=== PATIENT | female | born 1965 | race Hispanic/Latino ===

== ENCOUNTER 2018-02-07 12:08 | Emergency (ER) | payer BC, OTHER ==
[2018-02-07] MEDS ORDERED: ONDANSETRON 4 MG/2 ML VIAL ONE (13:14)
[2018-02-07] MEDS ORDERED: MORPHINE 4 MG/ML SYR ONE (13:14)
[2018-02-07] MEDS ORDERED: NA CHLORIDE 0.9% 2,000 ML ONE (13:14)
[2018-02-07 13:20] LABS: Absolute Lymphocytes (CBC) 1.2 K/uL (0.7-4.9); Absolute Monocytes 0.4 K/uL (0.1-1.3); Absolute Neutrophil 6.7 K/uL (1.8-8.0); Basophils % 0.6 % (0-1.3); Eosinophils % 0.9 % (0-4.4); Hematocrit 47.4 % (36.0-45.0); Lymphocytes % 14.4 % (15.3-44.8); MCH 28.7 pg (27.0-35.0); MCV 87.1 fL (80-100); MPV 7.6 fL (7.6-11.3); Monocytes % 4.8 % (3.3-12.3); RBC Red Blood Cell Count 5.44 M/uL (3.86-4.86)
[2018-02-07 13:27] LABS: Protime INR 1.05
[2018-02-07 13:33] LABS: Bicarbonate 26 mEq/L (21-31); Glucose Level 104 mg/dL (65-120); Lipase 11 U/L (22-51); Potassium 3.7 mEq/L (3.6-5.0); Sodium Level 136 mEq/L (135-145)
[2018-02-07 13:39] LABS: ALT/SGPT 35 IU/L (10-60); AST/SGOT 26 IU/L (10-42); Albumin 4.2 g/dL (3.2-5.5); Alkaline Phosphatase 106 IU/L (42-121); BUN Blood Urea Nitrogen 13 mg/dL (6-20); Bilirubin Direct 0.1 mg/dL (0-0.2); Bilirubin Total 0.7 mg/dL (0.3-1.2); Creatine Phosphokinase 77 IU/L (22-269); Magnesium 1.7 mg/dL (1.8-2.5); Protein, Total 7.7 g/dL (6.0-8.3)
[2018-02-07] MEDS ORDERED: CIPROFLOXACIN 400mg IV 400 MG/200 ML BAG IV ONE (15:01)
[2018-02-07 15:34] LABS: Urine Blood TRACE (NEG); Urine Glucose NEGATIVE (NEG); Urine Protein NEGATIVE (NEG); Urine Specific Gravity 1.015 (1.005-1.030)
--- NOTE | 2018-02-07 15:38 | EDPHYS ---
Physician Documentation [facility] Name: Chichi Carreon Age: 52 yrs Sex: Female : 1965 Arrival Date: 02/07/2018 Time: 12:10 Bed 23 Private MD: Milton Cuellar ED Physician Elie Manuel HPI: 02/07 13:05 This 52 yrs old Female presents to ER via Wheelchair with complaints of herman Vomiting/Diarrhea. 13:05 The patient presents to the emergency department with nausea, vomiting, diarrhea. herman Onset: The symptoms/episode began/occurred today. Possible causes: unknown. The symptoms are aggravated by nothing. The symptoms are alleviated by nothing. Associated signs and symptoms: Pertinent positives: nausea, vomiting. Severity of symptoms: At their worst the symptoms were mild moderate in the emergency department the symptoms are unchanged. The patient has experienced similar episodes in the past, a few times. 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 - Social history:: Smoking status: Patient/guardian denies using tobacco. ROS: 13:06 Constitutional: Negative for fever, chills, and weight loss, Eyes: Negative for injury, herman pain, redness, and discharge, ENT: Negative for injury, pain, and discharge, Neck: Negative for injury, pain, and swelling, Cardiovascular: Negative for chest pain, palpitations, and edema, Respiratory: Negative for shortness of breath, cough, wheezing, and pleuritic chest pain, Back: Negative for injury and pain, : Negative for injury, bleeding, discharge, and swelling, MS/Extremity: Negative for injury and deformity, Skin: Negative for injury, rash, and discoloration, Psych: Negative for depression, anxiety, suicide ideation, homicidal ideation, and hallucinations, Allergy/Immunology: Negative for hives, rash, and allergies, Endocrine: Negative for neck swelling, polydipsia, polyuria, polyphagia, and marked weight changes. 13:06 Abdomen/GI: Positive for nausea and vomiting, diarrhea, of the right upper quadrant, left upper quadrant, right lower quadrant and left lower quadrant. Exam: 13:06 Constitutional: This is a well developed, well nourished patient who is awake, alert, herman and in no acute distress. Head/Face: Normocephalic, atraumatic. Eyes: Pupils equal round and reactive to light, extra-ocular motions intact. Lids and lashes normal. Conjunctiva and sclera are non-icteric and not injected. Cornea within normal limits. Periorbital areas with no swelling, redness, or edema. ENT: Nares patent. No nasal discharge, no septal abnormalities noted. Tympanic membranes are normal and external auditory canals are clear. Oropharynx with no redness, swelling, or masses, exudates, or evidence of obstruction, uvula midline. Mucous membranes moist. Neck: Trachea midline, no thyromegaly or masses palpated, and no cervical lymphadenopathy. Supple, full range of motion without nuchal rigidity, or vertebral point tenderness. No Meningismus. Chest/axilla: Normal chest wall appearance and motion. Nontender with no deformity. No lesions are appreciated. Cardiovascular: Regular rate and rhythm with a normal S1 and S2. No gallops, murmurs, or rubs. Normal PMI, no JVD. No pulse deficits. Respiratory: Lungs have equal breath sounds bilaterally, clear to auscultation and percussion. No rales, rhonchi or wheezes noted. No increased work of breathing, no retractions or nasal flaring. Back: No spinal tenderness. No costovertebral tenderness. Full range of motion. Skin: Warm, dry with normal turgor. Normal color with no rashes, no lesions, and no evidence of cellulitis. MS/ Extremity: Pulses equal, no cyanosis. Neurovascular intact. Full, normal range of motion. Neuro: Awake and alert, GCS 15, oriented to person, place, time, and situation. Cranial nerves II-XII grossly intact. Motor strength 5/5 in all extremities. Sensory grossly intact. Cerebellar exam normal. Normal gait. 13:06 Abdomen/GI: Inspection: distension, Bowel sounds: hyperactive, Palpation: mild abdominal tenderness, in all quadrants, Indicators: McBurney's point is not tender, Clemens's sign is negative, Rovsing's sign is negative, Obturator sign Vital Signs: 12:14 BP 162 / 90; Pulse 81; Resp 19; Temp 99.0(TE); Pulse Ox 96% on R/A; Weight 72.57 kg; la1 Height 5 ft. 1 in. (154.94 cm); 13:45 BP 137 / 80; Pulse 67; Resp 18; Pulse Ox 95% on R/A; kr2 14:07 BP 148 / 81; Pulse 73; Resp 17; Pulse Ox 96% on R/A; dh3 15:21 BP 137 / 82; Pulse 70; Resp 16; Pulse Ox 93% on R/A; kr2 17:00 BP 140 / 90; Pulse 70; Resp 15; Pulse Ox 100% on R/A; kr2 12:14 Body Mass Index 30.23 (72.57 kg, 154.94 cm) la1 MDM: 12:59 Patient medically screened. [facility] 15:46 Data reviewed: vital signs, nurses notes, lab test result(s), EKG, radiologic studies, herman plain films. 02/07 13:04 Order name: Basic Metabolic Panel [facility] 02/07 13:04 Order name: BNP; Complete Time: 15:35 [facility] 02/07 13:04 Order name: CBC with Diff; Complete Time: 15:35 [facility] 02/07 13:04 Order name: Ckmb; Complete Time: 15:35 [facility] 02/07 13:04 Order name: CPK; Complete Time: 15:35 [facility] 02/07 13:04 Order name: LFT's; Complete Time: 15:35 [facility] 02/07 13:04 Order name: Magnesium; Complete Time: 15:35 [facility] 02/07 13:04 Order name: PT-INR; Complete Time: 15:35 [facility] 02/07 13:04 Order name: Ptt, Activated; Complete Time: 15:35 [facility] 02/07 13:04 Order name: Troponin (emerg Dept Use Only); Complete Time: 15:35 [facility] 02/07 13:04 Order name: Lipase; Complete Time: 15:35 [facility] 02/07 13:04 Order name: EKG; Complete Time: 13:04 [facility] 02/07 13:04 Order name: Cardiac monitoring; Complete Time: 13:09 [facility] 02/07 13:04 Order name: EKG - Nurse/Tech; Complete Time: 13:22 [facility] 02/07 13:04 Order name: IV Saline Lock; Complete Time: 13:09 [facility] 02/07 13:04 Order name: Labs collected and sent; Complete Time: 13: [facility] 02/07 13:04 Order name: O2 Per Protocol; Complete Time: 13:10 [facility] 02/07 13:04 Order name: O2 Sat Monitoring; Complete Time: 13:10 [facility] 02/07 13:04 Order name: Basic Metabolic Panel; Complete Time: 15:35 EDMS 02/07 15:19 Order name: Urine Dipstick--Ancillary (enter results); Complete Time: 15:35 eb 02/07 13:04 Order name: Urine Dipstick-Ancillary (obtain specimen); Complete Time: 15:21 [facility] Administered Medications: Discontinued: NS 0.9% 1000 ml IV at 125 ml/hr continuous 13:21 Drug: morphine 2 mg Route: IVP; Site: right antecubital; kr2 14:00 Follow up: Response: No adverse reaction kr2 13:21 Drug: Zofran 4 mg Route: IVP; Site: right antecubital; kr2 14:00 Follow up: Response: No adverse reaction kr2 13:22 Drug: NS 0.9% 1000 ml Route: IV; Rate: 1 bolus; Site: right antecubital; kr2 14:52 Follow up: Response: No adverse reaction; IV Status: Completed infusion kr2 14:52 Drug: NS 0.9% 1000 ml Route: IV; Rate: 125 ml/hr; Site: right antecubital; kr2 17:21 Follow up: Response: No adverse reaction; IV Status: Order to discontinue infusion kr2 14:53 Drug: Cipro 400 mg Volume: 200 ml; Route: IVPB; Infused Over: 60 mins; Site: left kr2 antecubital; 16:00 Follow up: Response: No adverse reaction; IV Status: Completed infusion kr2 15:50 Drug: Magnesium Sulfate 1 grams Route: IVPB; Infused Over: 1 hrs; Site: right kr2 antecubital; 17:20 Follow up: Response: No adverse reaction; IV Status: Completed infusion kr2 Disposition: 02/07/18 15:36 Discharged to Home. Impression: Vomiting, Diarrhea, unspecified, Hypomagnesemia. - Condition is Stable. - Discharge Instructions: Food Choices to Help Relieve Diarrhea, Adult, Diarrhea, Hypomagnesemia, Irritable Bowel Syndrome, Adult, Nausea and Vomiting, Nausea and Vomiting, [id number], Diarrhea, [id number]. - Prescriptions for Bentyl 20 mg Oral Tablet - take 1 tablet by ORAL route every 6 hours As needed; 20 tablet. Pepcid 20 mg Oral Tablet - take 1 tablet by ORAL route every 12 hours for 10 days; 20 tablet. Zofran 4 mg Oral Tablet - take 1 tablet by ORAL route every 12 hours As needed; 20 tablet. Cipro 500 mg Oral Tablet - take 1 tablet by ORAL route every 12 hours for 5 days; 10 tablet. - Medication Reconciliation Form, Thank You Letter, Antibiotic Education, Prescription Opioid Use form. - Follow up: Milton Cuellar; When: 2 - 3 days; Reason: Recheck today's complaints, Continuance of care, Re-evaluation by your physician. - Problem is new. - Symptoms have improved. Signatures: Dispatcher [employer] EDMS Elie Manuel MD MD cha Attema, Lee, RN RN la1 Negrita Contreras RN RN kr2 Corrections: (The following items were deleted from the chart) 13:05 13:04 Occult Blood+PA.LAB.BRZ ordered. EDMS EDMS 13:25 13:04 Chest Single View+RAD.RAD.BRZ ordered. EDMS EDMS
--- NOTE | 2018-02-07 15:38 | ER ---
Nurse's Notes [facility] Name: Chichi Carreon Age: 52 yrs Sex: Female : 1965 Arrival Date: 02/07/2018 Time: 12:10 Bed 23 Private MD: Milton Cuellar Diagnosis: Vomiting;Diarrhea, unspecified;Hypomagnesemia Presentation: 02/07 12:13 Presenting complaint: Patient states: N/V/D since 0100. pt denies abd pain. Transition la1 of care: patient was not received from another setting of care. Onset of symptoms was February 07, 2018. Initial Sepsis Screen: Does the patient meet any 2 criteria? No. Patient's initial sepsis screen is negative. Does the patient have a suspected source of infection? No. Patient's initial sepsis screen is negative. Care prior to arrival: None. 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 - Social history:: Smoking status: Patient/guardian denies using tobacco. Screenin:05 Abuse screen: Denies threats or abuse. Denies injuries from another. Nutritional kr2 screening: No deficits noted. Tuberculosis screening: No symptoms or risk factors identified. Fall Risk IV access (20 points). Assessment: 13:05 General: Appears in no apparent distress. comfortable, well groomed, well developed, kr2 well nourished, Behavior is calm, cooperative, appropriate for age. Pain: Complains of pain in forehead Pain does not radiate. Pain currently is 5 out of 10 on a pain scale. Quality of pain is described as pulsating, Pain began gradually, Is continuous, Alleviated by rest, Aggravated by increased activity, Noted to be grimacing. 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 Speech is normal, Facial symmetry appears normal, Pupils are PERRLA, Intact. Cardiovascular: Capillary refill < 3 seconds in bilateral fingers Patient's skin is warm and dry. Rhythm is sinus rhythm. Cardiovascular: Denies chest pain. Respiratory: Airway is patent Respiratory effort is even, unlabored, Respiratory pattern is regular, symmetrical. GI: Abdomen is round non-distended, Bowel sounds present X 4 quads. Abd is soft and non tender X 4 quads. Reports diarrhea, nausea, vomiting, since 0100. : No signs and/or symptoms were reported regarding the genitourinary system. Denies burning with urination. EENT: Nares are clear bilaterally Oral mucosa is dry. Derm: Skin is intact, is healthy with good turgor, Skin is dry, Skin is pale, Skin temperature is warm. Musculoskeletal: Circulation, motion, and sensation intact. 14:00 Reassessment: Patient appears in no apparent distress at this time. Patient and/or kr2 family updated on plan of care and expected duration. Pain level reassessed. Patient is alert, oriented x 3, equal unlabored respirations, skin warm/dry/pink. Patient states feeling better. Patient states symptoms have improved. 15:00 Reassessment: Patient appears in no apparent distress at this time. Patient and/or kr2 family updated on plan of care and expected duration. Pain level reassessed. Patient is alert, oriented x 3, equal unlabored respirations, skin warm/dry/pink. No episodes of vomiting or diarrhea since arrival to ER bed Patient denies pain at this time. Patient states feeling better. 16:00 Reassessment: Patient appears in no apparent distress at this time. Patient and/or kr2 family updated on plan of care and expected duration. Pain level reassessed. Patient is alert, oriented x 3, equal unlabored respirations, skin warm/dry/pink. Patient denies pain at this time. Patient states feeling better. Patient states symptoms have improved. 17:00 Reassessment: Patient appears in no apparent distress at this time. Patient and/or kr2 family updated on plan of care and expected duration. Pain level reassessed. Patient is alert, oriented x 3, equal unlabored respirations, skin warm/dry/pink. Patient denies pain at this time. Patient states feeling better. Patient states symptoms have improved. Vital Signs: 12:14 BP 162 / 90; Pulse 81; Resp 19; Temp 99.0(TE); Pulse Ox 96% on R/A; Weight 72.57 kg; la1 Height 5 ft. 1 in. (154.94 cm); 13:45 BP 137 / 80; Pulse 67; Resp 18; Pulse Ox 95% on R/A; kr2 14:07 BP 148 / 81; Pulse 73; Resp 17; Pulse Ox 96% on R/A; dh3 15:21 BP 137 / 82; Pulse 70; Resp 16; Pulse Ox 93% on R/A; kr2 17:00 BP 140 / 90; Pulse 70; Resp 15; Pulse Ox 100% on R/A; kr2 12:14 Body Mass Index 30.23 (72.57 kg, 154.94 cm) la1 ED Course: 12:10 Patient arrived in ED. as 12:10 Milton Cuellar MD is Private Physician. as 12:14 Triage completed. la1 12:14 Arm band placed on left wrist. la1 12:54 Negrita Contreras, ADINA is Primary Nurse. kr2 12:59 Elie Manuel MD is Attending Physician. herman 13:05 Patient has correct armband on for positive identification. Bed in low position. Call kr2 light in reach. Side rails up X2. Adult w/ patient. satellite project site monitor on. Pulse ox on. NIBP on. Door closed. Warm blanket given. Head of bed elevated. 13:05 Inserted saline lock: 20 gauge in right antecubital area, using aseptic technique. kr2 Blood collected. 15:36 Milton Cuellar MD is Referral Physician. herman 17:23 No provider procedures requiring assistance completed. IV discontinued, intact, kr2 bleeding controlled, No redness/swelling at site. Pressure dressing applied. Administered Medications: Discontinued: NS 0.9% 1000 ml IV at 125 ml/hr continuous 13:21 Drug: morphine 2 mg Route: IVP; Site: right antecubital; kr2 14:00 Follow up: Response: No adverse reaction kr2 13:21 Drug: Zofran 4 mg Route: IVP; Site: right antecubital; kr2 14:00 Follow up: Response: No adverse reaction kr2 13:22 Drug: NS 0.9% 1000 ml Route: IV; Rate: 1 bolus; Site: right antecubital; kr2 14:52 Follow up: Response: No adverse reaction; IV Status: Completed infusion kr2 14:52 Drug: NS 0.9% 1000 ml Route: IV; Rate: 125 ml/hr; Site: right antecubital; kr2 17:21 Follow up: Response: No adverse reaction; IV Status: Order to discontinue infusion kr2 14:53 Drug: Cipro 400 mg Volume: 200 ml; Route: IVPB; Infused Over: 60 mins; Site: left kr2 antecubital; 16:00 Follow up: Response: No adverse reaction; IV Status: Completed infusion kr2 15:50 Drug: Magnesium Sulfate 1 grams Route: IVPB; Infused Over: 1 hrs; Site: right kr2 antecubital; 17:20 Follow up: Response: No adverse reaction; IV Status: Completed infusion kr2 Outcome: 15:36 Discharge ordered by MD. sutton 17:24 Discharged to home via wheelchair. kr2 17:24 Condition: improved 17:24 Discharge instructions given to patient, family, Instructed on discharge instructions, follow up and referral plans. medication usage, Demonstrated understanding of instructions, follow-up care, medications, Prescriptions given X 4. 17:45 Patient left the ED. kr2 Signatures: Elie Manuel MD MD cha Martinez, Amelia as Attema, Lee, RN RN dana1 Diana Mccray [facility] Negrita Contreras, RN RN kr2
[2018-02-07] MEDS ORDERED: MAGNESIUM SULFATE 1 gm IVPB 1 GM/100 ML BAG IV ONE (16:07)
--- NOTE | 2018-02-07 18:26 | EKG ---
Test Date: 2018-02-07 Test Time: 13:15:05 Critical Care Unit Manager: BAYRON MEASUREMENT RESULTS: Intervals: Rate: 68 AR: 142 QRSD: 80 QT: 382 QTc: 406 [employer]: P: 25 AR: 142 QRS: -8 T: 132 INTERPRETIVE STATEMENTS: Normal sinus rhythm Minimal voltage criteria for LVH, may be normal variant Non specific T abnormality Abnormal ECG Compared to ECG 07/17/2011 08:34:26 no significant change from previous ECG Electronically Signed On 02-07-18 18:25:45 CDT by Hitesh Sanchez
== END 2018-02-07 17:45 | disposition home or self-care (01) ==
LOC: ER 12:08
DX: R11.10 Vomiting, unspecified (principal); R19.7 Diarrhea, unspecified; E83.42 Hypomagnesemia
CPT/HCPCS: 36415; 80048; 80076; 81003; 82550; 82553; 83690; 83735; 83880; 84484; 85025; 85610; 85730; 93005; 99284; J0744; J2405; J3475; J7030

== ENCOUNTER 2020-05-08 20:37 | Emergency (ER) | payer BC ==
[2020-05-08 21:26] LABS: Urine Blood 2+ (NEG); Urine Glucose NEGATIVE (NEG); Urine Protein NEGATIVE (NEG); Urine Specific Gravity 1.025 (1.005-1.030)
[2020-05-08] MEDS ORDERED: MORPHINE 4 MG/ML SYR ONE (21:29)
[2020-05-08] MEDS ORDERED: ONDANSETRON 4 MG/2 ML VIAL ONE (21:29)
[2020-05-08 21:30] LABS: Absolute Lymphocytes (CBC) 4.8 K/uL (0.7-4.9); Basophils % 0.3 % (0-1.3); Hematocrit 43.5 % (36.0-45.0); Lymphocytes % 49.3 % (15.3-44.8); RBC Red Blood Cell Count 5.01 M/uL (3.86-4.86)
[2020-05-08] MEDS ORDERED: NA CHLORIDE 0.9% 1,000 ML ONE (21:30)
--- NOTE | 2020-05-08 22:54 | EDPHYS ---
Physician Documentation [facility] Name: Chichi Carreon Age: 55 yrs Sex: Female : 1965 Arrival Date: 05/08/2020 Time: 20:38 Bed 19 Private MD: ED Physician Oliverio Cortez HPI: 05/08 21:18 This 55 yrs old Female presents to ER via Wheelchair with complaints of pkl Abdominal Pain, Vomiting, Pain With Urination. 21:18 The patient complains of pain in the left flank. The pain does not radiate. Onset: The pkl symptoms/episode began/occurred just prior to arrival. Associated signs and symptoms: Pertinent positives: nausea, vomiting. The patient has not experienced similar symptoms in the past. 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 - Social history:: Smoking status: Patient denies any tobacco usage or history of. ROS: 21:18 Eyes: Negative for injury, pain, redness, and discharge, ENT: Negative for injury, pkl pain, and discharge, Neck: Negative for injury, pain, and swelling, Cardiovascular: Negative for chest pain, palpitations, and edema, Respiratory: Negative for shortness of breath, cough, wheezing, and pleuritic chest pain, Abdomen/GI: Negative for abdominal pain, nausea, vomiting, diarrhea, and constipation. 21:18 Back: Positive for flank pain, on the left. 21:18 : Positive for burning with urination. 21:18 MS/extremity: Negative for acute changes. 21:18 Skin: Negative for rash. 21:18 Neuro: Negative for altered mental status. Exam: 21:18 Head/Face: Normocephalic, atraumatic. Eyes: Pupils equal round and reactive to light, pkl extra-ocular motions intact. Lids and lashes normal. Conjunctiva and sclera are non-icteric and not injected. Cornea within normal limits. Periorbital areas with no swelling, redness, or edema. ENT: Nares patent. No nasal discharge, no septal abnormalities noted. Tympanic membranes are normal and external auditory canals are clear. Oropharynx with no redness, swelling, or masses, exudates, or evidence of obstruction, uvula midline. Mucous membranes moist. Neck: Trachea midline, no thyromegaly or masses palpated, and no cervical lymphadenopathy. Supple, full range of motion without nuchal rigidity, or vertebral point tenderness. No Meningismus. Chest/axilla: Normal chest wall appearance and motion. Nontender with no deformity. No lesions are appreciated. Cardiovascular: Regular rate and rhythm with a normal S1 and S2. No gallops, murmurs, or rubs. Normal PMI, no JVD. No pulse deficits. Respiratory: Lungs have equal breath sounds bilaterally, clear to auscultation and percussion. No rales, rhonchi or wheezes noted. No increased work of breathing, no retractions or nasal flaring. Abdomen/GI: Soft, non-tender, with normal bowel sounds. No distension or tympany. No guarding or rebound. No evidence of tenderness throughout. 21:18 Back: pain, that is moderate, of the left flank. 21:18 : Exam negative for acute changes. 21:18 Musculoskeletal/extremity: Exam is negative for acute changes. 21:18 Skin: Exam negative for rash. 21:18 Neuro: Orientation: is normal, Mentation: is normal, Cranial nerves: grossly normal, Motor: is normal. Vital Signs: 20:47 BP 161 / 86; Pulse 88; Resp 17 S; Temp 98.9(O); Pulse Ox 98% on R/A; Weight 81.65 kg jd3 (R); Height 5 ft. 1 in. (154.94 cm) (R); Pain 9/10; 21:46 BP 155 / 86; Pulse 91; Resp 18; Pulse Ox 97% on R/A; mt2 22:30 BP 152 / 91; Pulse 88; Resp 16; Pulse Ox 99% on R/A; Pain 0/10; mt2 23:04 BP 149 / 89; Pulse 81; Resp 17; Temp 97.9(O); Pulse Ox 97% ; Pain 0/10; mt2 20:47 Body Mass Index 34.01 (81.65 kg, 154.94 cm) jd3 MDM: 20:56 Patient medically screened. pkl 22:47 Data reviewed: vital signs, nurses notes, lab test result(s), radiologic studies, CT pkl scan. ED course: Patient feeling better. Pain resolved. Discussed lab. and CT Scan results with patient. Advised to follow up with Urology in 2 to 3 days. Patient understood instruction. 05/08 21:05 Order name: CBC with Diff; Complete Time: 21:56 mt2 05/08 21:13 Order name: Urine Dipstick--Ancillary (enter results); Complete Time: 21:56 2 05/08 21:19 Order name: Stone Protocol CT mt2 05/08 21:05 Order name: IV Saline Lock; Complete Time: 21:06 mt2 05/08 21:05 Order name: Labs collected and sent; Complete Time: 21:06 mt2 05/08 21:06 Order name: Urine Dipstick-Ancillary (obtain specimen); Complete Time: 21:06 mt2 Administered Medications: 21:31 Drug: morphine 4 mg Route: IVP; Site: left antecubital; mt2 21:47 Follow up: Response: No adverse reaction; Pain is decreased mt2 21:31 Drug: Zofran (Ondansetron) 4 mg Route: IVP; Site: left antecubital; mt2 21:46 Follow up: BP 155 / 86; Pulse 91 bpm; Resp 18 bpm; Pulse Ox 97% RA; Response: No mt2 adverse reaction; Pain is decreased 21:46 Follow up: Response: No adverse reaction; Nausea is decreased mt2 21:31 Drug: NS 0.9% 1000 ml Route: IV; Rate: 1 bolus; Site: left antecubital; mt2 22:37 Follow up: IV Status: Completed infusion; IV Intake: 1000ml mt2 22:37 Follow up: Response: No adverse reaction mt2 Disposition: 05/08/20 22:52 Discharged to Home. Impression: Left hydronephrosis due to distal ureteral calculus. - Condition is Stable. - Prescriptions for Tylenol- Codeine #3 300-30 mg Oral Tablet - take 1 tablet by ORAL route every 8 hours As needed; 30 tablet. Flomax 0.4 mg Oral Capsule, Sust. Release 24 hr - take 1 capsule by ORAL route once daily 1/2 hour following the same meal each day; 15 capsule. - Medication Reconciliation Form, Thank You Letter, Antibiotic Education, Prescription Opioid Use form. - Follow up: Sunil Encarnacion MD; When: 2 - 3 days; Reason: Re-evaluation by your physician. Signatures: Dispatcher [employer] Oliverio García MD MD pkLuis Edwards RN RN jd3 Aster Casas RN RN mt2 Corrections: (The following items were deleted from the chart) 23:06 22:52 05/08/2020 22:52 Discharged to Home. Impression: Left hydronephrosis due to mt2 distal ureteral calculus. Condition is Stable. Forms are Medication Reconciliation Form, Thank You Letter, Antibiotic Education, Prescription Opioid Use. Follow up: Sunil Encarnacion; When: 2 - 3 days; Reason: Re-evaluation by your physician. pkl
--- NOTE | 2020-05-08 22:54 | ER ---
Nurse's Notes [facility] Name: Chichi Carreon Age: 55 yrs Sex: Female : 1965 Arrival Date: 05/08/2020 Time: 20:38 Bed 19 Private MD: Diagnosis: Left hydronephrosis due to distal ureteral calculus Presentation: 05/08 20:42 Chief complaint: Patient states: "we had just gotten home from getting chocolate jd3 shakes. when we got home I am having a lot of nausea and vomiting and it li a little when I pee.". Coronavirus screen: Proceed with normal triage. Ebola Screen: Patient negative for fever greater than or equal to 101.5 degrees Fahrenheit, and additional compatible Ebola Virus Disease symptoms. Initial Sepsis Screen: Does the patient meet any 2 criteria? No. Patient's initial sepsis screen is negative. Does the patient have a suspected source of infection? No. Patient's initial sepsis screen is negative. Risk Assessment: Do you want to hurt yourself or someone else? Patient reports no desire to harm self or others. Onset of symptoms was May 08, 2020. 20:42 Method Of Arrival: Wheelchair jd3 20:42 Acuity: BRENT 3 jd3 Triage Assessment: 21:00 General: Behavior is cooperative. 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 - Social history:: Smoking status: Patient denies any tobacco usage or history of. Screenin:05 Abuse screen: Denies threats or abuse. Nutritional screening: No deficits noted. mt2 Tuberculosis screening: No symptoms or risk factors identified. Fall Risk None identified. Assessment: 20:55 General: Appears uncomfortable. Pain: Complains of pain in left upper quadrant, left mt2 lower quadrant and abdomen diffusely Pain currently is 10 out of 10 on a pain scale. Quality of pain is described as burning, Pain began 1 hour ago. Neuro: No deficits noted. Cardiovascular: No deficits noted. Respiratory: No deficits noted. GI: Bowel sounds present X 4 quads. Abdomen is tender to palpation Reports lower abdominal pain. : Reports burning with urination. EENT: No deficits noted. Derm: No deficits noted. Musculoskeletal: No deficits noted. 21:47 Reassessment: Patient and/or family updated on plan of care and expected duration. Pain mt2 level reassessed. Patient states symptoms have improved. 22:30 Reassessment: Patient and/or family updated on plan of care and expected duration. Pain mt2 level reassessed. Patient denies pain at this time. Patient states feeling better. Patient states symptoms have improved. 23:04 Reassessment: Patient and/or family updated on plan of care and expected duration. Pain mt2 level reassessed. Patient denies pain at this time. Patient states feeling better. Patient states symptoms have improved. Vital Signs: 20:47 BP 161 / 86; Pulse 88; Resp 17 S; Temp 98.9(O); Pulse Ox 98% on R/A; Weight 81.65 kg jd3 (R); Height 5 ft. 1 in. (154.94 cm) (R); Pain 9/10; 21:46 BP 155 / 86; Pulse 91; Resp 18; Pulse Ox 97% on R/A; mt2 22:30 BP 152 / 91; Pulse 88; Resp 16; Pulse Ox 99% on R/A; Pain 0/10; mt2 23:04 BP 149 / 89; Pulse 81; Resp 17; Temp 97.9(O); Pulse Ox 97% ; Pain 0/10; mt2 20:47 Body Mass Index 34.01 (81.65 kg, 154.94 cm) jd3 ED Course: 20:38 Patient arrived in ED. cf2 20:43 Triage completed. jd3 20:48 Arm band placed on. jd3 20:52 Aster Casas, ADINA is Primary Nurse. mt2 20:56 Oliverio Cortez MD is Attending Physician. pkl 21:05 Patient has correct armband on for positive identification. Placed in gown. Bed in low mt2 position. Call light in reach. Side rails up X 1. 21:05 Initial lab(s) drawn, by me, sent to lab. Inserted saline lock: 20 gauge in right mt2 antecubital area, using aseptic technique. Blood collected. 21:06 Lipase Sent. mt2 21:[address] In Process Unspecified. EDMS 21:47 Basic Metabolic Panel Sent. mt2 22:50 Sunil Encarnacion MD is Referral Physician. pkl 23:05 No provider procedures requiring assistance completed. IV discontinued, intact, mt2 bleeding controlled, No redness/swelling at site. Pressure dressing applied. Administered Medications: 21:31 Drug: morphine 4 mg Route: IVP; Site: left antecubital; mt2 21:47 Follow up: Response: No adverse reaction; Pain is decreased mt2 21:31 Drug: Zofran (Ondansetron) 4 mg Route: IVP; Site: left antecubital; mt2 21:46 Follow up: BP 155 / 86; Pulse 91 bpm; Resp 18 bpm; Pulse Ox 97% RA; Response: No mt2 adverse reaction; Pain is decreased 21:46 Follow up: Response: No adverse reaction; Nausea is decreased mt2 21:31 Drug: NS 0.9% 1000 ml Route: IV; Rate: 1 bolus; Site: left antecubital; mt2 22:37 Follow up: IV Status: Completed infusion; IV Intake: 1000ml mt2 22:37 Follow up: Response: No adverse reaction mt2 Intake: 22:37 IV: 1000ml; Total: 1000ml. mt2 Outcome: 22:52 Discharge ordered by . pkl 23:05 Discharged to home ambulatory. mt2 23:05 Condition: good 23:05 Discharge instructions given to Instructed on discharge instructions, follow up and referral plans. medication usage, Demonstrated understanding of instructions, follow-up care, medications, Prescriptions given X 2. 23:06 Patient left the ED. mt2 Signatures: Dispatcher [employer] EDOliverio Brennan MD MD pkl Luis Dotson RN RN jd3 Marino Griggs cf2 Aster Casas RN RN mt2 Corrections: (The following items were deleted from the chart) 20:48 20:47 Pulse 88bpm; Resp 17bpm; Spontaneous; Pulse Ox 98% RA; Temp 98.9F Oral; 81.65 kg jd3 Reported; Height 5 ft. 1 in. Reported; BMI: 34.0; Pain 9/10; jd3
--- NOTE | 2020-05-09 09:58 | RAD REPORT ---
EXAM DESCRIPTION: Stone Protocol CLINICAL HISTORY: ABD PAIN COMPARISON: None Available TECHNIQUE: Contiguous axial images of the abdomen and pelvis were obtained followed by reconstructio n images. This exam was performed according to our departmental dose-optimization program, which incl udes automated exposure control, adjustment of the mA and/or kV according to patient size and/or use of iterative reconstruction technique. FINDINGS: The liver is of decreased attenuation compatible with fatty infiltration. There are nonobs tructive stones within both kidneys. The left kidney demonstrates hydronephrosis due to a 6.6 x 3.6 m m mm stone at the distal ureter. The liver, spleen, and pancreas are within normal limits. The gallbladder is unremarkable by CT crite jessica. Adrenal glands are within normal limits. Aorta is of normal caliber and tapering. There is no fr ee fluid in the abdomen or pelvis. There is no bowel obstruction. There is no stranding of the mesent jamie fat to suggest an inflammatory response. The appendix is within normal limits. There is no peric ecal inflammation. IMPRESSION: Left-sided hydronephrosis due to a 6.6 x 3.6 mm stone within the distal ureter. Additional nonobstructive stones within both kidneys. Electronically signed by: Yakov Kilpatrick MD 05/08/2020 10:07 PM CDT Due to temporary technical issues with the PACS/Fluency reporting system, reports are being signed by the in house radiologist without review as a courtesy to ensure prompt reporting. The interpreting r adiologist is fully responsible for the content of the report.
[2020-05-09 15:09] VITALS: BP 149/89; TEMP 97.9; O2SAT 97
== END 2020-05-08 23:06 | disposition home or self-care (01) ==
LOC: ER 20:37
DX: N13.2 Hydronephrosis with renal and ureteral calculous obstruction (principal); I10 Essential (primary) hypertension
CPT/HCPCS: 96361; 85025; 81003; 76377; 74176; 96375; 96374; 99284; J7030; J2405

== ENCOUNTER 2020-10-25 02:01 | Emergency (ER) | payer BC ==
--- OUTSIDE RECORDS SUMMARY | 2020-10-25 02:04 | XMS REPORT | Continuity of Care Document ---
:1965 Author Organization Formerly [facility] t Address [address] [place] [address] Care Team Providers Name Role Phone Marina Chery Attending Clinician Doctor Unassigned, Name Attending Clinician Unavailable Mikhail VELAZQUEZ Attending Clinician Problems Condition Condition Condition Status Onset Resolution Last Treating Co mments Source Name Details Category Date Date Treatment Clinician Date Kidney Kidney Problem Active [facility] Allergies, Adverse Reactions, Alerts This patient has no known allergies or adverse reactions. Medications Ordered Filled Start Stop Current Ordering Indication Dosage Frequency Signature Comments Components Source Medication Medication Date Date Medication? Clinician (SIG) Name Name Amlodipine Amlodipine Yes Linda [address] [facility] Bes[facility] Bes[facility] Bystolic Bystolic Yes Linda [address] [facility] Procedures This patient has no known procedures. Encounters Start End Encounter Admission Attending Care Care Encounter Source Date/Time Date/Time Type Type Clinicians Facility Department ID 2020-05-29 2020-05-29 Case OPAL Calabrese [id number] 00:00:00 00:00:00 Management Ann-Marie James [id number] [place] [id number] [place] [id number] [address] 2020-05-17 2020-05-17 Orders Doctor CHAN [id number] 00:00:00 00:00:00 Only Unassigned, JEAN CLAUDE [id number] [facility] [id number] 2020-05-14 2020-05-14 [facility] [id number] 12:40:00 23:59:00 Encounter Ann-Maire Gray Erika [id number] [place] [id number] [place] [id number] 2020-05-14 2020-05-14 [facility] [id number] 09:21:04 11:38:36 Visit Terrence Erika [id number] [place] [id number] Professio [id number] [address] 2020-05-14 2020-05-14 [facility] [id number] 00:00:00 00:00:00 Ann-Marie Gray Erika [id number] [place] [id number] Professio [id number] [address] 2020-05-10 2020-05-10 Orders Doctor DUSTIN [id number] 00:00:00 00:00:00 Only Unassigned, JEAN CLAUDE [id number] [facility] [id number] 2020-05-09 2020-05-09 Outpatient Josesandoval Barbra [id number] [facility] [address] 11:15:00 11:15:00 t Specialty/[facility] [place] [facility] - Specialty rology [facility] a /Urology Clinic l Clinic Outpati ent Clinics Results This patient has no known results.
[2020-10-25] MEDS ORDERED: KETOROLAC 30 MG/ML INJ ONE (02:55)
[2020-10-25] MEDS ORDERED: MORPHINE 4 MG/ML SYR ONE (02:55)
[2020-10-25] MEDS ORDERED: ONDANSETRON 4 MG/2 ML VIAL ONE (02:55)
[2020-10-25] MEDS ORDERED: NA CHLORIDE 0.9% 1,000 ML ONE ×2 (02:56→04:44)
[2020-10-25] MEDS ORDERED: CEFTRIAXONE/SWI 1gm 1 GM/10 ML SYR ONE (02:56)
[2020-10-25 03:42] LABS: Albumin 3.8 g/dL (3.4-5.0); Bilirubin Direct 0.1 mg/dL (0-0.2); Bilirubin Total 0.6 mg/dL (0.2-1.0); Potassium 3.7 mmol/L (3.5-5.1); Protein, Total 7.5 g/dL (6.4-8.2)
[2020-10-25 03:49] LABS: Basophils % 0.2 % (0-1.3); Hematocrit 43.9 % (36.0-45.0); Lymphocytes % 16.4 % (15.3-44.8); RBC Red Blood Cell Count 4.97 M/uL (3.86-4.86)
[2020-10-25] MEDS ORDERED: TAMSULOSIN 0.4 MG SR CAP ONE (04:44)
--- NOTE | 2020-10-25 05:19 | ER ---
Nurse's Notes [facility] Name: Chichi Carreon Age: 55 yrs Sex: Female : 1965 Arrival Date: 10/25/2020 Time: 02:05 Bed 16 Private MD: Diagnosis: Hydronephrosis with renal and ureteral calculous obstruction-2 x 6 mm distal right calculi;Left sided colitis without complications Presentation: 10/25 02:24 Chief complaint: Patient states: my right side is hurting started 0100H today and feels rr5 nauseous and vomiting. denies burning urinating,denies fever has a history of left kidney stone. Coronavirus screen: Client denies travel out of the [place] in the last 14 days. At this time, the client does not indicate any symptoms associated with coronavirus-19. Ebola Screen: Patient negative for fever greater than or equal to 101.5 degrees Fahrenheit, and additional compatible Ebola Virus Disease symptoms Patient denies exposure to infectious person. Patient denies travel to an Ebola-affected area in the 21 days before illness onset. Initial Sepsis Screen: Does the patient meet any 2 criteria? HR > 90 bpm. Yes Does the patient have a suspected source of infection? Yes: Dysuria/Frequency/Urgency/UTI. Risk Assessment: Do you want to hurt yourself or someone else? Patient reports no desire to harm self or others. Onset of symptoms was October 25, 2020. 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 - Social history:: Smoking status: unknown Patient/guardian denies using alcohol, street drugs. - Family history:: not pertinent. Screenin:17 Abuse screen: Denies threats or abuse. Denies injuries from another. Nutritional rr5 screening: No deficits noted. Tuberculosis screening: No symptoms or risk factors identified. Fall Risk IV access (20 points). Total Velez Fall Scale indicates No Risk (0-24 pts). Assessment: 02:30 General: Appears in no apparent distress. uncomfortable, ill, Behavior is calm, rr5 cooperative, appropriate for age. 02:30 Pain: Complains of pain in posterior aspect of right lateral abdomen, anterior aspect rr5 of right lateral abdomen, right upper quadrant and right lower quadrant Pain currently is 10 out of 10 on a pain scale. Quality of pain is described as aching, Pain began suddenly, Is intermittent. Neuro: Level of Consciousness is awake, alert, obeys commands, Oriented to person, place, time, situation. Cardiovascular: Capillary refill < 3 seconds Patient's skin is warm and dry. Respiratory: Airway is patent Respiratory effort is even, unlabored, Respiratory pattern is regular, symmetrical. GI: Abdomen is round non-distended, Bowel sounds present X 4 quads. Abd is soft and non tender Reports lower abdominal pain, upper abdominal pain, nausea, vomiting. : Reports pain in right flank(s). EENT: No signs and/or symptoms were reported regarding the EENT system. Derm: Skin is intact, is healthy with good turgor, Skin temperature is warm. Musculoskeletal: Circulation, motion, and sensation intact. Capillary refill < 3 seconds. 03:35 Reassessment: Patient appears in no apparent distress at this time. Patient is alert, rr5 oriented x 3, equal unlabored respirations, skin warm/dry/pink. awaiting for CT result Patient states feeling better. Patient states symptoms have improved. 04:30 Reassessment: Patient appears in no apparent distress at this time. Patient is alert, rr5 oriented x 3, equal unlabored respirations, skin warm/dry/pink. resting eyes closed breathing spontaneously at room air\E\. 05:46 Reassessment: Patient appears in no apparent distress at this time. Patient is alert, rr5 oriented x 3, equal unlabored respirations, skin warm/dry/pink. discharge instruction given and explained without complaints made Patient states feeling better. Patient states symptoms have improved. Vital Signs: 02:24 BP 181 / 108; Pulse 99; Resp 18; Temp 99.3; Pulse Ox 98% ; Weight 77.11 kg; Height 5 rr5 ft. 1 in. (154.94 cm); Pain 9/10; 03:00 BP 165 / 100; Pulse 95; Resp 17; Pulse Ox 99% ; rr5 04:23 BP 139 / 77; Pulse 90; Resp 16; Pulse Ox 99% ; Pain 0/10; rr5 05:46 BP 132 / 62; Pulse 85; Resp 17; Pulse Ox 99% ; rr5 02:24 Body Mass Index 32.12 (77.11 kg, 154.94 cm) rr5 ED Course: 02:05 Patient arrived in ED. cl3 02:12 Riley Ledesma, ADINA is Primary Nurse. rr5 02:19 Elie Manuel MD is Attending Physician. herman 02:27 Triage completed. rr5 02:37 Arm band placed on right wrist. rr5 02:40 Patient has correct armband on for positive identification. Placed in gown. Bed in low rr5 position. Call light in reach. Side rails up X2. Pulse ox on. NIBP on. 03:00 Inserted saline lock: 20 gauge in left antecubital area, using aseptic technique. Blood rr5 collected. 03:41 CT Stone Protocol In Process Unspecified. EDMS 05:18 Akil Lambert MD is Referral Physician. herman 05:46 No provider procedures requiring assistance completed. IV discontinued, intact, rr5 bleeding controlled, No redness/swelling at site. Pressure dressing applied. Administered Medications: 03:00 Drug: NS 0.9% 1000 ml Route: IV; Rate: 1 bolus; Site: left antecubital; rr5 04:22 Follow up: Response: No adverse reaction; IV Status: Completed infusion; IV Intake: rr5 1000ml 03:00 Drug: Zofran (Ondansetron) 4 mg Route: IVP; Site: left antecubital; rr5 03:50 Follow up: Response: No adverse reaction; Marked relief of symptoms rr5 03:02 Drug: morphine 4 mg {Note: rass 0.} Route: IVP; Site: left antecubital; rr5 04:00 Follow up: Response: No adverse reaction; Marked relief of symptoms; RASS: Alert and rr5 Calm (0) 03:05 Drug: Rocephin 1 grams Route: IV; Rate: per protocol; Site: left antecubital; rr5 04:30 Follow up: Response: No adverse reaction; IV Status: Completed infusion; IV Intake: 65rstb2 03:07 Drug: TORadol 30 mg Route: IVP; Site: left antecubital; rr5 04:00 Follow up: Response: No adverse reaction; Marked relief of symptoms rr5 04:31 Drug: Flomax 0.4 mg Route: PO; rr5 05:30 Follow up: Response: No adverse reaction rr5 04:32 Drug: NS 0.9% 500 ml Route: IV; Rate: bolus; Site: left antecubital; rr5 05:45 Follow up: Response: No adverse reaction; IV Status: Completed infusion; IV Intake: rr5 1000ml 04:32 Drug: NS 0.9% 500 ml Route: IV; Rate: bolus; Site: left antecubital; rr5 05:47 Follow up: Response: No adverse reaction; IV Status: Completed infusion; IV Intake: rr5 500ml Intake: 04:22 IV: 1000ml; Total: 1000ml. rr5 04:30 IV: 10ml; Total: 1010ml. rr5 05:45 IV: 1000ml; Total: 2010ml. rr5 05:47 IV: 500ml; Total: 2510ml. rr5 Outcome: 05:18 Discharge ordered by . herman 05:46 Discharged to home ambulatory. rr5 05:46 Condition: stable 05:46 Discharge instructions given to patient, Instructed on discharge instructions, follow up and referral plans. medication usage, Demonstrated understanding of instructions, follow-up care, medications, Prescriptions given X 4. 05:48 Patient left the ED. rr5 Signatures: Dispatcher [employer] EDVT Elie Manuel MD MD cha Roque, Raymond RN RN rr5 Maxime Ramirez cl3 Corrections: (The following items were deleted from the chart) 02:51 02:24 Chief complaint: Patient states: my right side is hurting started 0100H today. rr5 denies urine problem denies fever has a history of left kidney stone rr5
--- NOTE | 2020-10-25 05:19 | EDPHYS ---
Physician Documentation [facility] Name: Chichi Carreon Age: 55 yrs Sex: Female : 1965 Arrival Date: 10/25/2020 Time: 02:05 Bed 16 Private MD: ED Physician Elie Manuel HPI: 10/25 02:36 This 55 yrs old Female presents to ER via Wheelchair with complaints of herman Possible Kidney Stone, Vomiting. 02:36 The patient presents to the emergency department with nausea, vomiting, that is herman intermittent. Onset: The symptoms/episode began/occurred just prior to arrival. Possible causes: unknown. The symptoms are aggravated by nothing. The symptoms are alleviated by nothing. Associated signs and symptoms: The patient has no apparent associated signs or symptoms. Severity of symptoms: At their worst the symptoms were mild in the emergency department the symptoms are unchanged. The patient has not experienced similar symptoms in the past. 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 - Social history:: Smoking status: unknown Patient/guardian denies using alcohol, street drugs. - Family history:: not pertinent. ROS: 02:36 Constitutional: Negative for fever, chills, and weight loss, Eyes: Negative for injury, herman pain, redness, and discharge, ENT: Negative for injury, pain, and discharge, Neck: Negative for injury, pain, and swelling, Cardiovascular: Negative for chest pain, palpitations, and edema, Respiratory: Negative for shortness of breath, cough, wheezing, and pleuritic chest pain, : Negative for injury, bleeding, discharge, and swelling, MS/Extremity: Negative for injury and deformity, Skin: Negative for injury, rash, and discoloration, Neuro: Negative for headache, weakness, numbness, tingling, and seizure, Psych: Negative for depression, anxiety, suicide ideation, homicidal ideation, and hallucinations, Allergy/Immunology: Negative for hives, rash, and allergies, Endocrine: Negative for neck swelling, polydipsia, polyuria, polyphagia, and marked weight changes, Hematologic/Lymphatic: Negative for swollen nodes, abnormal bleeding, and unusual bruising. 02:36 Abdomen/GI: Positive for abdominal pain, abdominal cramps, of the posterior aspect of right lateral abdomen, anterior aspect of right lateral abdomen, right upper quadrant and right lower quadrant. Exam: 02:36 Constitutional: This is a well developed, well nourished patient who is awake, alert, herman and in no acute distress. Head/Face: Normocephalic, atraumatic. Eyes: Pupils equal round and reactive to light, extra-ocular motions intact. Lids and lashes normal. Conjunctiva and sclera are non-icteric and not injected. Cornea within normal limits. Periorbital areas with no swelling, redness, or edema. ENT: Nares patent. No nasal discharge, no septal abnormalities noted. Tympanic membranes are normal and external auditory canals are clear. Oropharynx with no redness, swelling, or masses, exudates, or evidence of obstruction, uvula midline. Mucous membranes moist. Neck: Trachea midline, no thyromegaly or masses palpated, and no cervical lymphadenopathy. Supple, full range of motion without nuchal rigidity, or vertebral point tenderness. No Meningismus. Chest/axilla: Normal chest wall appearance and motion. Nontender with no deformity. No lesions are appreciated. Cardiovascular: Regular rate and rhythm with a normal S1 and S2. No gallops, murmurs, or rubs. Normal PMI, no JVD. No pulse deficits. Respiratory: Lungs have equal breath sounds bilaterally, clear to auscultation and percussion. No rales, rhonchi or wheezes noted. No increased work of breathing, no retractions or nasal flaring. Back: No spinal tenderness. No costovertebral tenderness. Full range of motion. Skin: Warm, dry with normal turgor. Normal color with no rashes, no lesions, and no evidence of cellulitis. MS/ Extremity: Pulses equal, no cyanosis. Neurovascular intact. Full, normal range of motion. Neuro: Awake and alert, GCS 15, oriented to person, place, time, and situation. Cranial nerves II-XII grossly intact. Motor strength 5/5 in all extremities. Sensory grossly intact. Cerebellar exam normal. Normal gait. Psych: Awake, alert, with orientation to person, place and time. Behavior, mood, and affect are within normal limits. 02:36 Abdomen/GI: Inspection: distension, Bowel sounds: active, Palpation: moderate abdominal tenderness, in the posterior aspect of right lateral abdomen and anterior aspect of right lateral abdomen, Liver: no appreciated palpable abnormalities, Hernia: not appreciated. Vital Signs: 02:24 BP 181 / 108; Pulse 99; Resp 18; Temp 99.3; Pulse Ox 98% ; Weight 77.11 kg; Height 5 rr5 ft. 1 in. (154.94 cm); Pain 9/10; 03:00 BP 165 / 100; Pulse 95; Resp 17; Pulse Ox 99% ; rr5 04:23 BP 139 / 77; Pulse 90; Resp 16; Pulse Ox 99% ; Pain 0/10; rr5 05:46 BP 132 / 62; Pulse 85; Resp 17; Pulse Ox 99% ; rr5 02:24 Body Mass Index 32.12 (77.11 kg, 154.94 cm) rr5 MDM: 02:19 Patient medically screened. [facility] 02:38 Differential diagnosis: Nonspecific abd pain. Data reviewed: vital signs, nurses notes, [facility] lab test result(s), radiologic studies, CT scan. Data interpreted: monitoring analyst: rate is 99 beats/min, rhythm is regular. Test interpretation: by ED physician or midlevel provider: plain radiologic studies. Counseling: I had a detailed discussion with the patient and/or guardian regarding: the historical points, exam findings, and any diagnostic results supporting the discharge/admit diagnosis, lab results, radiology results. 10/25 02:36 Order name: Basic Metabolic Panel; Complete Time: 04:04 [facility] 10/25 02:36 Order name: CBC with Diff; Complete Time: 04:04 [facility] 10/25 02:36 Order name: Hepatic Function; Complete Time: 04:04 [facility] 10/25 02:36 Order name: Lipase; Complete Time: 04:04 [facility] 10/25 02:36 Order name: Urine Culture [facility] 10/25 04:39 Order name: Urine Dipstick--Ancillary (enter results) mw2 10/25 02:36 Order name: CT Stone Protocol [facility] 10/25 02:36 Order name: IV Saline Lock; Complete Time: 03:17 [facility] 10/25 02:36 Order name: Labs collected and sent; Complete Time: 03:17 [facility] 10/25 02:36 Order name: Urine Dipstick-Ancillary (obtain specimen); Complete Time: 04:32 [facility] Administered Medications: 03:00 Drug: NS 0.9% 1000 ml Route: IV; Rate: 1 bolus; Site: left antecubital; rr5 04:22 Follow up: Response: No adverse reaction; IV Status: Completed infusion; IV Intake: rr5 1000ml 03:00 Drug: Zofran (Ondansetron) 4 mg Route: IVP; Site: left antecubital; rr5 03:50 Follow up: Response: No adverse reaction; Marked relief of symptoms rr5 03:02 Drug: morphine 4 mg {Note: rass 0.} Route: IVP; Site: left antecubital; rr5 04:00 Follow up: Response: No adverse reaction; Marked relief of symptoms; RASS: Alert and rr5 Calm (0) 03:05 Drug: Rocephin 1 grams Route: IV; Rate: per protocol; Site: left antecubital; rr5 04:30 Follow up: Response: No adverse reaction; IV Status: Completed infusion; IV Intake: [id number] 03:07 Drug: TORadol 30 mg Route: IVP; Site: left antecubital; rr5 04:00 Follow up: Response: No adverse reaction; Marked relief of symptoms rr5 04:31 Drug: Flomax 0.4 mg Route: PO; rr5 05:30 Follow up: Response: No adverse reaction rr5 04:32 Drug: NS 0.9% 500 ml Route: IV; Rate: bolus; Site: left antecubital; rr5 05:45 Follow up: Response: No adverse reaction; IV Status: Completed infusion; IV Intake: rr5 1000ml 04:32 Drug: NS 0.9% 500 ml Route: IV; Rate: bolus; Site: left antecubital; rr5 05:47 Follow up: Response: No adverse reaction; IV Status: Completed infusion; IV Intake: rr5 500ml Disposition: 10/25/20 05:18 Discharged to Home. Impression: Hydronephrosis with renal and ureteral calculous obstruction - 2 x 6 mm distal right calculi, Left sided colitis without complications. - Condition is Stable. - Discharge Instructions: Kidney Stones, Kidney Stones, [id number], Hydronephrosis, Dietary Guidelines to Help Prevent Kidney Stones. - Prescriptions for Tylenol- Codeine #3 300-30 mg Oral Tablet - take 2 tablets by ORAL route every 6 hours As needed; 5 tablet. Zofran 4 mg Oral Tablet - take 1 tablet by ORAL route every 12 hours As needed; 20 tablet. Flomax 0.4 mg Oral Capsule, Sust. Release 24 hr - take 1 capsule by ORAL route once daily 1/2 hour following the same meal each day; 30 capsule. Cipro 500 mg Oral Tablet - take 1 tablet by ORAL route every 12 hours for 7 days; 14 tablet. - Medication Reconciliation Form, Thank You Letter, Antibiotic Education, Prescription Opioid Use form. - Follow up: Private Physician; When: 2 - 3 days; Reason: Recheck today's complaints, Continuance of care, Re-evaluation by your physician. Follow up: Akil Lambert; When: 1 - 2 days; Reason: Recheck today's complaints, Continuance of care, Re-evaluation by your physician. - Problem is new. - Symptoms have improved. Signatures: Dispatcher [employer] EDIN Elie Manuel MD MD cha Roque, Raymond, RN RN rr5 Corrections: (The following items were deleted from the chart) 05:48 05:18 10/25/2020 05:18 Discharged to Home. Impression: Hydronephrosis with renal and rr5 ureteral calculous obstruction - 2 x 6 mm distal right calculi; Left sided colitis without complications. Condition is Stable. Discharge Instructions: Kidney Stones, Kidney Stones, Hfij-vz-Pedr, Hydronephrosis, Dietary Guidelines to Help Prevent Kidney Stones. Prescriptions for Tylenol-Codeine #3 300-30 mg Oral Tablet - take 2 tablets by ORAL route every 6 hours As needed; 5 tablet, Zofran 4 mg Oral Tablet - take 1 tablet by ORAL route every 12 hours As needed; 20 tablet, Flomax 0.4 mg Oral Capsule, Sust. Release 24 hr - take 1 capsule by ORAL route once daily 1/2 hour following the same meal each day; 30 capsule, Cipro 500 mg Oral Tablet - take 1 tablet by ORAL route every 12 hours for 7 days; 14 tablet. and Forms are Medication Reconciliation Form, Thank You Letter, Antibiotic Education, Prescription Opioid Use. Follow up: Private Physician; When: 2 - 3 days; Reason: Recheck today's complaints, Continuance of care, Re-evaluation by your physician. Follow up: Akil Lambert; When: 1 - 2 days; Reason: Recheck today's complaints, Continuance of care, Re-evaluation by your physician. Problem is new. Symptoms have improved. herman
[2020-10-25 06:18] LABS: Urine Blood TRACE (NEG); Urine Glucose NEGATIVE (NEG); Urine Protein NEGATIVE (NEG); Urine pH 5.5 (5.0-7.0)
--- NOTE | 2020-10-25 18:13 | RAD REPORT ---
EXAM DESCRIPTION: CT ABDOMEN AND PELVIS WITHOUT CONTRAST CLINICAL HISTORY: FLANK PAIN COMPARISON: 05/08/2020 TECHNIQUE: CT of the abdomen and pelvis without IV contrast. Evaluation of the solid organs and vasc ulature is suboptimal due to lack of IV contrast. FINDINGS: Lung Bases: The visualized lung bases are clear. Bones: Degenerative endplate spondylosis of the spine. Abdomen: Liver: The liver has normal size and decreased density. Gallbladder: No calcified gallstones. Spleen, Pancreas, and Adrenal Glands: The spleen, pancreas, and adrenal glands are unremarkable. Kidneys: There are 2 calculi in the distal right ureter both measuring 0.6 cm. Mild right hydroureter and hydronephrosis. No left-sided hydronephrosis. Bilateral nonobstructing nephrolithiasis. Right pe rinephric fat stranding. Vasculature: Aortoiliac atherosclerosis. IVC is unremarkable. Stomach: The stomach and duodenum have normal course. Other: No free intraperitoneal air. No free fluid or lymphadenopathy. Pelvis: Bladder: Urinary bladder is unremarkable. Bowel: No dilated loops of large or small bowel. 1 segment wall thickening of the colon with submuc osal fatty infiltration. Appendix: Normal appendix. Pelvis: Uterus is not enlarged. IMPRESSION: 1. There are 2 obstructing calculi in the distal right ureter measuring approximately 0. 6 cm each. Mild right hydroureter and hydronephrosis. 2. Bilateral nonobstructing nephrolithiasis. 3. Long segment wall thickening of the colon with submucosal fatty infiltration. This could be seen w ith nonspecific chronic colitis. 4. Hepatic steatosis. This exam was performed according to our departmental dose-optimization program, which includes autom ated exposure control, adjustment of the mA and/or kV according to patient size and/or use of iterati ve reconstruction technique. Electronically signed by: Luis Alfredo Peterson 10/25/2020 4:01 AM SILK BLOCKER Due to temporary technical issues with the PACS/Fluency reporting system, reports are being signed by the in house radiologists without review as a courtesy to insure prompt reporting. The interpreting radiologist is fully responsible for the content of the report.
== END 2020-10-25 05:48 | disposition home or self-care (01) ==
LOC: ER 02:01
DX: N13.2 Hydronephrosis with renal and ureteral calculous obstruction (principal); K51.50 Left sided colitis without complications; I10 Essential (primary) hypertension; Z87.442 Personal history of urinary calculi
CPT/HCPCS: 96365; 96361; 87088; 85025; 87086; 80048; 36415; 80076; 81003; 83690; 76377; 74176; 96375; 99284; J0696; J7030 ×2; J2405

== ENCOUNTER 2022-05-06 01:18 | Observation (INO) | payer BC ==
[2022-05-06 02:12] LABS: Urine Blood 1+ (Negative); Urine Glucose Negative (Negative); Urine Protein Trace (Negative)
[2022-05-06] MEDS ORDERED: MAGNESIUM SULFATE 1 gm IVPB 1 GM/100 ML BAG IV ONE (02:20)
[2022-05-06] MEDS ORDERED: TAMSULOSIN 0.4 MG SR CAP ONE (02:20)
[2022-05-06] MEDS ORDERED: MORPHINE 4 MG/ML SYR ONE (02:20)
[2022-05-06] MEDS ORDERED: ONDANSETRON 4 MG/2 ML VIAL ONE (02:20)
[2022-05-06 02:35] LABS: Urine Bacteria 20-50 /HPF (<20); Urine RBC <5 /HPF (None Seen)
[2022-05-06 02:46] LABS: Absolute Lymphocytes (CBC) 2.9 K/uL (0.7-4.9); Hematocrit 42.5 % (36.0-45.0); MCV 85.8 fL (80-100); MPV 7.1 fL (7.6-11.3); RBC Red Blood Cell Count 4.95 M/uL (3.86-4.86)
[2022-05-06 02:51] LABS: Potassium 3.3 mmol/L (3.5-5.1)
[2022-05-06] MEDS ORDERED: PROMETHAZINE INJ 25 MG/ML AMP ONE (03:08)
[2022-05-06] MEDS ORDERED: MEPERIDINE HCL 25 MG/ML SYR ONE ×2 (03:11→07:39)
--- NOTE | 2022-05-06 07:25 | RAD REPORT ---
EXAM DESCRIPTION: CT - Stone Protocol - 05/06/2022 3:52 am CLINICAL HISTORY: Abdominal pain. Flank pain COMPARISON: 2019 TECHNIQUE: Computed axial tomography of the abdomen pelvis was obtained without oral or IV contrast. Lack of IV and oral contrast limits evaluation of solid organs, appendix, bowel, and vessels. Fatima l reformatted images were obtained and reviewed. All CT scans are performed using dose optimization technique as appropriate and may include automated exposure control or mA/KV adjustment according to patient size. FINDINGS: Multiple, bilateral small renal calculi. Moderate right hydronephrosis with perirenal stra nding. Right ureter is dilated. 8 millimeter calculus distal right ureter. Minimal left hydronephrosis. A left ureteral calculus is not seen. Fatty liver Spleen, pancreas and adrenals appear grossly normal There is no evidence of diverticulitis. The appendix appears normal Small to moderate umbilical hernia IMPRESSION: 8 millimeter calculus distal right ureter resulting in moderate right hydronephrosis
--- NOTE | 2022-05-06 07:38 | EDPHYS ---
Physician Documentation [facility] Name: Chichi Carreon Age: 57 yrs Sex: Female : 1965 Arrival Date: 05/06/2022 Time: 01:20 Bed 24 Private MD: ED Physician Rober Jean HPI: 05/06 02:08 This 57 yrs old Female presents to ER via Ambulatory with complaints of Flank rn Pain, Possible Kidney Stone. 02:08 The patient complains of pain in the right mid back. The pain radiates to the abdomen. rn Onset: The symptoms/episode began/occurred just prior to arrival. Modifying factors: The symptoms are alleviated by nothing. the symptoms are aggravated by nothing. Associated signs and symptoms: Pertinent positives: nausea, Pertinent negatives: fever. Severity of pain: At its worst the pain was moderate in the emergency department the pain is unchanged. The patient has experienced similar episodes in the past. The patient has not recently seen a physician. Pt reports sudden onset right flank pain, radiates to right abdomen, identical to previous kidney stones, no fever. . Historical: - Allergies: 02:01 No Known Allergies; as6 - PMHx: 02:01 Hypertension; Kidney stones; as6 - Immunization history:: Client reports receiving the 2nd dose of the Covid vaccine, pfizer. - Social history:: Smoking status: Smoking status: Patient denies any tobacco usage or history of. - Family history:: not pertinent. - Hospitalizations: : No recent hospitalization is reported. ROS: 02:08 Constitutional: Negative for fever, chills, and weight loss, Eyes: Negative for injury, rn pain, redness, and discharge, Cardiovascular: Negative for chest pain, palpitations, and edema, Respiratory: Negative for shortness of breath, cough, wheezing, and pleuritic chest pain, Abdomen/GI: + right flank and abd pain, + nausea Back: + right flank pain : Negative for injury, bleeding, discharge, and swelling, MS/Extremity: Negative for injury and deformity, Skin: Negative for injury, rash, and discoloration, Neuro: Negative for headache, weakness, numbness, tingling, and seizure. Exam: 02:08 Constitutional: This is a well developed, well nourished patient who is awake, alert, rn appears uncomfortable, holding emesis bag. Ambulatory to room without assistance or difficulty. Head/Face: Normocephalic, atraumatic. Eyes: Periorbital areas with no swelling, redness, or edema. Cardiovascular: Regular rate and rhythm. No pulse deficits. Respiratory: No increased work of breathing, no retractions or nasal flaring. Abdomen/GI: Soft, non-tender Back: No CVAT Skin: Warm, dry with normal turgor. Normal color with no rashes, no lesions, and no evidence of cellulitis. MS/ Extremity: Pulses equal, no cyanosis. Neuro: Awake and alert, GCS 15 Vital Signs: 01:56 BP 167 / 100; Pulse 91; Resp 19; Temp 98.0(O); Pulse Ox 96% on R/A; Weight 77.11 kg as6 (R); Height 5 ft. 1 in. (154.94 cm) (R); Pain 10/10; 02:39 BP 150 / 82; Pulse 83; Resp 18 S; Pulse Ox 94% on R/A; as6 04:30 BP 127 / 72; Pulse 86; Resp 18 S; Pulse Ox 94% on R/A; as6 06:41 BP 123 / 75; Pulse 86; Resp 16 S; Pulse Ox 96% on R/A; aa9 07:41 BP 148 / 87; Pulse 98; Resp 18; Pulse Ox 92% on R/A; rocha 09:12 BP 131 / 78; Pulse 87; Resp 16; Pulse Ox 94% on R/A; rocha 01:56 Body Mass Index 32.12 (77.11 kg, 154.94 cm) as6 MDM: 01:32 Patient medically screened. rn 04:20 ED course: Pt sleeping comfortably, stable vitals, awaiting ct results. . rn 06:15 Differential diagnosis: nephrolithiasis, pyelonephritis, UTI. Data reviewed: vital rn signs, nurses notes, lab test result(s). ED course: Pt reports feels much better, is resting comfortably, when I wake her up reports pain down to 1-2/10. CT stone still pending read.. 06:33 ED course: Spoke with avionics test technician, states virtual radiologist not able to see images, has rn placed 2 tickets with IT, still not resolved. Delay due to radiology. . 07:36 ED course: Discussed case with Dr Cuellar and he accepts patient. Will consult Dr damian Lambert at 11 AM.. 05/06 01:33 Order name: Urine Microscopic Only; Complete Time: 02:53 rn 05/06 01:50 Order name: CBC with Diff; Complete Time: 02:53 rn 05/06 01:50 Order name: Basic Metabolic Panel; Complete Time: 02:53 rn 05/06 02:12 Order name: Urine Dipstick-Ancillary; Complete Time: 02:53 EDMS 05/06 02:38 Order name: Urine Culture EDMS 05/06 09:02 Order name: SARS RAPID em1 05/06 01:33 Order name: CT Stone Protocol; Complete Time: 07:30 rn 05/06 13:04 Order name: SARS-COV-2 Antigen Rapid EDMS 05/06 01:33 Order name: Urine Dipstick-Ancillary (obtain specimen); Complete Time: 02:12 rn 05/06 01:50 Order name: IV Start; Complete Time: 02:41 rn 05/06 07:45 Order name: NPO EDMS Administered Medications: 02:30 Drug: morphine 4 mg Route: IVP; Infused Over: 4 mins; Site: right antecubital; aa9 07:27 Follow up: Response: No adverse reaction rocha 02:30 Drug: Flomax (tamsulosin) 0.4 mg Route: PO; aa9 07:27 Follow up: Response: No adverse reaction rocha 02:40 Drug: Zofran (Ondansetron) 4 mg Route: IVP; Site: right antecubital; aa9 07:27 Follow up: Response: No adverse reaction rocha 02:41 Drug: Magnesium Sulfate 1 grams Route: IVPB; Infused Over: 1 hrs; Site: right aa9 antecubital; 03:14 Drug: Demerol (meperidine) 25 mg Route: IVP; Site: right antecubital; aa9 07:28 Follow up: Response: No adverse reaction rocha 03:14 Drug: Phenergan (promethazine) 12.5 mg Route: IVP; Site: right antecubital; aa9 07:28 Follow up: Response: No adverse reaction rocha 07:40 Drug: Demerol (meperidine) 25 mg Route: IVP; Site: right antecubital; rocha 07:40 Follow up: Response: No adverse reaction rocha Disposition Summary: 05/06/22 07:37 Hospitalization Ordered Hospitalization Status: Observation ms3 Provider: Milton Cuellar ms3 Condition: Stable ms3 Problem: new ms3 Symptoms: are unchanged ms3 Bed/Room Type: Standard ms3 Location: [facility](05/06/22 13:44) dw Room Assignment: 272-(05/06/22 13:44) dw Diagnosis - Hydronephrosis with renal and ureteral calculous obstruction ms3 - UTI/ Urinary tract infection, site not specified ms3 - Right flank pain ms3 Forms: - Medication Reconciliation Form ms3 - SBAR form ms3 Signatures: Dispatcher [employer] EDBridgette Nix RN RN Rajesh Nguyễn MD MD rn Martinez, Jaquan em1 Rober eJan DO DO ms3 Emery Delaney RN RN as6 Louisa Vargas RN RN ha Avalos, Aylin, RN RN aa9 Corrections: (The following items were deleted from the chart) 11:36 07:37 Telemetry/MedSurg (observation) ms3 em1 11:36 07:37 ms3 em1 13:44 11:36 [facility] ER HOLD em1 dw 13:44 11:36 ERHOLD- em1 dw
--- NOTE | 2022-05-06 07:38 | ER ---
Nurse's Notes [facility] Name: Chichi Carreon Age: 57 yrs Sex: Female : 1965 Arrival Date: 05/06/2022 Time: 01:20 Bed 24 Private MD: Diagnosis: Hydronephrosis with renal and ureteral calculous obstruction;UTI/ Urinary tract infection, site not specified;Right flank pain Presentation: 05/06 01:56 Chief complaint: Patient states: "I think I have a kidney stone" pt reports left flank as6 pain, nausea, vomiting. HX of stones. Coronavirus screen: At this time, the client does not indicate any symptoms associated with coronavirus-19. Ebola Screen: No symptoms or risks identified at this time. Initial Sepsis Screen: Does the patient meet any 2 criteria? No. Patient's initial sepsis screen is negative. Does the patient have a suspected source of infection? No. Patient's initial sepsis screen is negative. Risk Assessment: Do you want to hurt yourself or someone else? Patient reports no desire to harm self or others. Onset of symptoms was May 06, 2022. 01:56 Method Of Arrival: Ambulatory as6 01:56 Acuity: BRENT 3 as6 Historical: - Allergies: 02:01 No Known Allergies; as6 - PMHx: 02:01 Hypertension; Kidney stones; as6 - Immunization history:: Client reports receiving the 2nd dose of the Covid vaccine, pfizer. - Social history:: Smoking status: Smoking status: Patient denies any tobacco usage or history of. - Family history:: not pertinent. - Hospitalizations: : No recent hospitalization is reported. Screenin:03 Abuse screen: Denies threats or abuse. Denies injuries from another. Nutritional as6 screening: No deficits noted. Tuberculosis screening: No symptoms or risk factors identified. Fall Risk None identified. Assessment: 02:04 General: Appears uncomfortable, Behavior is calm, cooperative. Pain: Complains of pain as6 in left flank. Neuro: Level of Consciousness is awake, alert, obeys commands. Respiratory: Respiratory effort is even, unlabored. GI: Pt is actively vomiting Reports nausea, vomiting. Vital Signs: 01:56 BP 167 / 100; Pulse 91; Resp 19; Temp 98.0(O); Pulse Ox 96% on R/A; Weight 77.11 kg as6 (R); Height 5 ft. 1 in. (154.94 cm) (R); Pain 10/10; 02:39 BP 150 / 82; Pulse 83; Resp 18 S; Pulse Ox 94% on R/A; as6 04:30 BP 127 / 72; Pulse 86; Resp 18 S; Pulse Ox 94% on R/A; as6 06:41 BP 123 / 75; Pulse 86; Resp 16 S; Pulse Ox 96% on R/A; aa9 07:41 BP 148 / 87; Pulse 98; Resp 18; Pulse Ox 92% on R/A; rocha 09:12 BP 131 / 78; Pulse 87; Resp 16; Pulse Ox 94% on R/A; rocha 01:56 Body Mass Index 32.12 (77.11 kg, 154.94 cm) as6 ED Course: 01:20 Patient arrived in ED. bp1 01:25 Katty Rosenthal RN is Primary Nurse. bb 01:32 Rajesh Nguyễn MD is Attending Physician. rn 02:01 Triage completed. as6 02:03 Arm band placed on. as6 02:04 Bed in low position. Call light in reach. Side rails up X 1. Pulse ox on. NIBP on. Warm as6 blanket given. 02:33 Inserted saline lock: 20 gauge in right antecubital area, using aseptic technique. aa9 Blood collected. 02:41 Basic Metabolic Panel Sent. aa9 02:41 CBC with Diff Sent. aa9 03:54 CT Stone Protocol In Process Unspecified. EDMS 07:16 Attending Physician role handed off by Rajesh Nguyễn MD ms3 07:16 Rober Jean DO is Attending Physician. ms3 07:36 Milton Cuellar MD is Hospitalizing Provider. ms3 07:42 No provider procedures requiring assistance completed. rocha 14:49 Patient admitted, IV remains in place. intact, No redness/swelling at site. jl7 Administered Medications: 02:30 Drug: morphine 4 mg Route: IVP; Infused Over: 4 mins; Site: right antecubital; aa9 07:27 Follow up: Response: No adverse reaction rocha 02:30 Drug: Flomax (tamsulosin) 0.4 mg Route: PO; aa9 07:27 Follow up: Response: No adverse reaction rocha 02:40 Drug: Zofran (Ondansetron) 4 mg Route: IVP; Site: right antecubital; aa9 07:27 Follow up: Response: No adverse reaction rocha 02:41 Drug: Magnesium Sulfate 1 grams Route: IVPB; Infused Over: 1 hrs; Site: right aa9 antecubital; 03:14 Drug: Demerol (meperidine) 25 mg Route: IVP; Site: right antecubital; aa9 07:28 Follow up: Response: No adverse reaction rocha 03:14 Drug: Phenergan (promethazine) 12.5 mg Route: IVP; Site: right antecubital; aa9 07:28 Follow up: Response: No adverse reaction rocha 07:40 Drug: Demerol (meperidine) 25 mg Route: IVP; Site: right antecubital; rocha 07:40 Follow up: Response: No adverse reaction rocha Medication: 07:42 VIS not applicable for this client. rocha Outcome: 07:37 Decision to Hospitalize by Provider. ms3 12:00 Admitted to ER Hold. Please see [facility] for further documentation. jl7 12:00 Condition: stable 12:00 Discharge instructions given to patient, Instructed on the need for admit, Demonstrated understanding of instructions. 14:49 Patient left the ED. jl7 Signatures: Dispatcher [employer] EDKatty Melgar RN RN bb Nieto, Roman, MD MD rn Leal, Jahala, RN RN jl7 Rober Jean DO DO ms3 Christie Bernal Ashby, RN RN as6 Louisa Vargas RN RN ha Avalos, Aylin, RN RN aa9
[2022-05-06] MEDS ORDERED: ONDANSETRON 4 MG/2 ML VIAL IV PRN (07:41)
[2022-05-06] MEDS ORDERED: ACETAMINOPHEN 500 MG TAB PO PRN (07:41)
[2022-05-06] MEDS ORDERED: HYDROMORPHONE HCL 1 MG/ML INJ IV PRN (07:41)
[2022-05-06] MEDS ORDERED: NA CHLORIDE 0.9% 1,000 ML IV SCH (08:00)
[2022-05-06] MEDS ORDERED: Levofloxacin500mg IV 500 MG/100 ML BAG IV SCH (08:00)
[2022-05-06] MEDS ORDERED: NA CHLORIDE 0.9% 1,000 ML ONE (10:44)
[2022-05-06] MEDS ORDERED: Levofloxacin500mg IV 500 MG/100 ML BAG IV ONE (10:44)
[2022-05-06] MEDS ORDERED: HYDROCODONE/APAP 5/325 MG TAB PO PRN (11:18)
[2022-05-06 11:31] VITALS: BMI 32.1
[2022-05-06 13:04] LABS: SARS-CoV-2 Antigen Rapid Res Negative (Negative)
--- NOTE | 2022-05-06 13:21 | P.CNS ---
Date of Consult: 05/06/22 Chief complaint: Right sided/flank pain History of present illness: 57-year-old woman with hypertension presented with severe right upper quadrant pain that began at midnight and was associated with nausea and vomiting several times. This prompted presentation to the emergency department where evaluation was completed as below. She denied any associated fever/chills, nausea/vomiting. Since her time in the emergency department, the pain has significantly abated associated with her medical therapy. She has a history of recurrent kidney stones for at least 3 prior occasions on both sides. The initial was around 2015 and she had a shockwave lithotripsy with Dr. Mccracken at the surgical center in [place]. She has passed stones on 2 other occasions. She denies any dysuria or gross hematuria. Past medical history: Hypertension Past surgical history: Carpal tunnel No known drug allergies Family history: She denies history of urologic malignancy Social history: She denies any history of smoking Examination: Comfortable and well-appearing at this time in no acute distress with a tray of food that she was nibbling on at the time of my visit with her. No active nausea or vomiting Alert, awake, oriented x3 No dyspnea or sign of respiratory distress No cervical/supraclavicular adenopathy or thyromegaly appreciated Abdomen soft, nontender, nondistended No CVA tenderness appreciated Lying in a stretcher sitting recumbent CT stone protocol abdomen and pelvis without contrast: Mild right perinephric stranding with moderate hydronephrosis and caliectasis and a distal ureteral/UVJ 8 mm calculus with ureteral nephrosis. 05/06/2022 WBC 9.7, creatinine 0.73, urinalysis with microscopic assessment contaminated specimen Assessment and recommendation: This is a 57-year-old woman with hypertension who is a recurrent stone former now with 8 mm distal right sided ureteral/UVJ calculus causing obstruction and nausea and vomiting without any signs of complicating infection. -If she is able to successfully tolerate the diet given to her, she may be discharged home with antiemetics and pain medication accordingly, and a I will arrange follow-up for her in the urology clinic within the coming 2 weeks. -Please provide her a strainer so that she might strain her urine to collect any stones if she is successful in spontaneous passage. I explained that while with an 8 mm calculus, she would only have about an 80 percent chance of successful spontaneous passage, the fact that she is passed it 95 to 99% [address] the way out down the ureter would suggest she may be more successful than we might otherwise anticipate. If she is able to successfully pass the stone and has no pain, no surgical intervention will be required. If she is unable to pass the stone or if she still having any pain, she will require ureteroscopy with stone management.
[2022-05-06 15:30] VITALS: O2SAT 99
[2022-05-06 15:31] VITALS: BP 142/67; TEMP 99.1
--- NOTE | 2022-05-06 19:12 | PN ---
Date of Progress Note: 05/06/2022 The patient is now symptomatic for 6 hours. We will try her diet as tolerated. She could be dischar ged on oral medication including Levaquin, Flomax, and Vicodin for pain. She was seen by Urology, ne eds to be followed up in 2 weeks. I will see her in 1 week unless become symptomatic. The patient h as had some experience passing stones. She has had a number of them, one of them did require a stent placement a couple of years ago by Dr. Mccracken. Her vital signs are stable and nontender on examinati on including abdomen and renal area, so is tolerated by suppertime on her diet, she can be discharged . HR/MODL Voice ID: [id number] Report ID: [id number]
[2022-05-07] MEDS ORDERED: NEBIVOLOL HCL 20 MG TABLET PO SCH (09:00)
--- OUTSIDE RECORDS SUMMARY | 2022-05-08 13:41 | XMS REPORT | Continuity of Care Document ---
:1965 Author Organization [facility] [place] [facility] t Address [address] [place] [address] Care Team Providers Name Role Phone ANDREE Primary Care Physician Unavailable MIKHAIL Attending Clinician Unavailable ANSHU Attending Clinician Unavailable ANSHU Attending Clinician Unavailable GEO Attending Clinician Unavailable Bernardo EDUCATIONAL PSYCHOLOGIST, A Attending Clinician Doctor Unassigned, Name Attending Clinician Unavailable GRAMM, A Attending Clinician Unavailable Mikhail VELAZQUEZ Attending Clinician Pob, Lab Main Attending Clinician Unavailable MIKHAIL Admitting Clinician Unavailable Payers Payer Name Policy Type Policy Number Effective Date Expiration Date Porfirio plunkett [facility] [id number] 2017 00:00:00 [facility] Problems Condition Condition Condition Status Onset Resolution Last Treating Co mments Source Name Details Category Date Date Treatment Clinician Date Calculus Calculus Disease Active Overview: Un ten of ureter of ureter 05-14 Added ity of 00:00: automatic [place] 00 ally from Medical request Branch for surgery [id number] Hydronephr Hydronephr Disease Active Overview : Univers osis with osis with 05-14 Added ity of urinary urinary 00:00: automatic [place] obstructio obstructio 00 ally from Medical n due to n due to request Branc h ureteral ureteral for calculus calculus surgery [id number] No known No known Disease Unive rs active active ity of problems problems [place] [facility] Allergies, Adverse Reactions, Alerts Allergy Allergy Status Severity Reaction(s) Onset Inactive Treating Comm ents Source Name Type Date Date Clinician No Known DA Active [facility] NO KNOWN Drug Active Univers ALLERG Class ity of S [facility] Social History Social Habit Start Date Stop Date Quantity Comments Source Sex Assigned At [facility] Exposure to SARS-CoV-[address] Not [address] [facility] (event) Medical Branch Smoking Status Start Date Stop Date Source Unknown if ever smoked [facility] Never smoker [facility] Medications Ordered Filled Start Stop Current Ordering Indication Dosage Frequency Signature Comments Components Source Medication Medication Date Date Medication? Clinician (SIG) Name Name amlodipine 2020-0 Yes Take by Uni vers besylate 7-27 mouth. ity of (AMLODIPINE 16:01: [place] [facility]AL[place] 14 Medical Branch nebivolol 2020-0 Yes Take by Univ ers HCl 7-27 mouth. ity of (BYSTOLIC 16:01: [place] [facility]AL) 14 Medical Branch ascorbic 2020-0 Yes Take by Unive rs acid 7-27 mouth. ity of (VITAMIN C 16:01: [place] ORAL) 14 Medical Branch BIOTIN ORAL 2020-0 Yes Take by Un ten 7-27 mouth. ity of 16:01: [place] 14 Medical Branch amlodipine 2020-0 Yes Take by Uni vers besylate 7-27 mouth. ity of (AMLODIPINE 16:01: [place] ORAL) 14 Medical Branch nebivolol 2020-0 Yes Take by Univ ers HCl 7-27 mouth. ity of (BYSTOLIC 16:01: [place] ORAL) 14 Medical Branch ascorbic 2020-0 Yes Take by Unive rs acid 7-27 mouth. ity of (VITAMIN C 16:01: [place] [facility]AL) 14 Medical Branch BIOTIN ORAL 2020-0 Yes Take by Un ten 7-27 mouth. ity of 16:01: [place] 14 Medical Branch amlodipine 2020-0 Yes Take by Uni vers besylate 7-27 mouth. ity of (AMLODIPINE 16:01: [place] [facility]AL) 14 Medical Branch nebivolol 2020-0 Yes Take by Univ ers HCl 7-27 mouth. ity of (BYSTOLIC 16:01: [place] ORAL) 14 Medical Branch ascorbic 2020-0 Yes Take by Unive rs acid 7-27 mouth. ity of (VITAMIN C 16:01: [place] ORAL) 14 Medical Branch BIOTIN ORAL 2020-0 Yes Take by Un ten 7-27 mouth. ity of 16:01: [place] 14 Medical Branch amlodipine 2020-0 Yes Take by Uni vers besylate 7-27 mouth. ity of (AMLODIPINE 16:01: [place] [facility]AL) 14 Medical Branch nebivolol 2020-0 Yes Take by Univ ers HCl 7-27 mouth. ity of (BYSTOLIC 16:01: [place] ORAL) 14 Medical Branch ascorbic 2020-0 Yes Take by Unive rs acid 7-27 mouth. ity of (VITAMIN C 16:01: [place] [facility]AL) 14 Medical Branch BIOTIN ORAL 2020-0 Yes Take by Un ten 7-27 mouth. ity of 16:01: [place] 14 Medical Branch amlodipine 2020-0 Yes Take by Uni vers besylate 7-27 mouth. ity of (AMLODIPINE 16:01: [place] ORAL) 14 Medical Branch nebivolol 2020-0 Yes Take by Univ ers HCl 7-27 mouth. ity of (BYSTOLIC 16:01: [place] ORAL) 14 Medical Branch ascorbic 2020-0 Yes Take by Unive rs acid 7-27 mouth. ity of (VITAMIN C 16:01: [place] ORAL) 14 Medical Branch BIOTIN ORAL 2020-0 Yes Take by Un ten 7-27 mouth. ity of 16:01: [place] 14 Medical Branch amlodipine 2020-0 Yes Take by Uni vers besylate 7-27 mouth. ity of (AMLODIPINE 16:01: [place] ORAL) 14 Medical Branch nebivolol 2020-0 Yes Take by Univ ers HCl 7-27 mouth. ity of (BYSTOLIC 16:01: [place] ORAL) 14 Medical Branch ascorbic 2020-0 Yes Take by Unive rs acid 7-27 mouth. ity of (VITAMIN C 16:01: [place] ORAL) 14 Medical Branch BIOTIN ORAL 2020-0 Yes Take by Un ten 7-27 mouth. ity of 16:01: [place] 14 Medical Branch amlodipine 2020-0 Yes Take by Uni vers besylate 7-27 mouth. ity of (AMLODIPINE 16:01: [place] ORAL) 14 Medical Branch nebivolol 2020-0 Yes Take by Univ ers HCl 7-27 mouth. ity of (BYSTOLIC 16:01: [place] ORAL) 14 Medical Branch ascorbic 2020-0 Yes Take by Unive rs acid 7-27 mouth. ity of (VITAMIN C 16:01: [place] ORAL) 14 Medical Branch BIOTIN ORAL 2020-0 Yes Take by Un ten 7-27 mouth. ity of 16:01: [place] 14 Medical Branch amlodipine 2019-0 Yes Take by Uni vers besylate 7 mouth. ity of (AMLODIPINE 16:01: [place] ORAL) 14 Medical Branch nebivolol 0 Yes Take by Univ ers HCl 7- mouth. ity of (BYSTOLIC 16:01: [place] ORAL) 14 Medical Branch ascorbic 2019-0 Yes Take by Unive rs acid - mouth. ity of (VITAMIN C 16:01: [place] [facility]AL) Medical Branch BIOTIN ORAL 2019-0 Yes Take by Un ten 05-14 mouth. ity of 16:01: [address] Branch amlodipine 0 Yes Take by Uni vers besylate 05-14 mouth. ity of (AMLODIPINE 16:01: [place] [facility]AL) Medical Branch nebivolol Yes Take by Univ ers HCl 05-14 mouth. ity of (BYSTOLIC 16:01: [place] ORAL) Medical Branch ascorbic 2019-0 Yes Take by Unive rs acid 05-14 mouth. ity of (VITAMIN C 16:01: [place] [facility]AL) Medical Branch BIOTIN ORAL Yes Take by Un ten 05-14 mouth. ity of 16:01: [address] No known No Univers medications ity of [facility] No known No Univers medications ity of [facility] Amlodipine Amlodipine Yes Linda 1 tablet Common Besylate Besylate [facility] Bystolic Bystolic Yes Linda [address] [facility] Vital Signs Vital Name Observation Time Observation Value Comments Source Systolic blood 2020-05-14 14:35:00 168 mm[Hg] Univer sity of pressure [facility] Diastolic blood 2020-05-14 14:35:00 88 mm[Hg] Unive rsity of pressure [facility] Heart rate 2020-05-14 14:35:00 76 /min [facility] Body temperature 2020-05-14 14:35:00 36.39 Lissa [facility] ersity [facility] Respiratory rate 2020-05-14 14:35:00 18 /min [facility] ersity [facility] Body weight 2020-05-14 14:35:[address] [facility] Systolic blood 2020-05-14 14:35:00 168 mm[Hg] Univer sity of pressure [facility] Diastolic blood 2020-05-14 14:35:00 88 mm[Hg] Unive rsity of pressure [facility] Heart rate 2020-05-14 14:35:00 76 /min [facility] Body temperature 2020-05-14 14:35:00 36.39 [facility]issa [facility] Respiratory rate 2020-05-14 14:35:00 18 /min [facility] Body weight 2020-05-14 14:35:[address] [facility] Procedures Procedure Date / Time Performed Performing Clinician Sourc e EXTERNAL PROVIDER 2020-05-17 05:01:00 Doctor Unassigned, No Univ [facility] RECORDS Name [facility] CT ABDOMEN PELVIS WO 2020-05-14 18:05:55 Ann-Marie Calabrese [facility] POCT URINALYSIS AUTO 2020-05-14 14:34:00 Terrence Elizondo [facility] REFERRAL- 2020-05-10 05:01:00 Doctor Unassigned, No [facility] REQUEST/RESPONSE Name [facility] Encounters Start End Encounter Admission Attending Care Care Encounter Source Date/Time Date/Time Type Type Clinicians Facility Department ID 2021-11-13 Outpatient [facility] [id number] Common 11:32:[id number] [facility] 2021-08-16 Outpatient R MIKHAIL [facility] [id number] Univers 09:04:36 [facility] 2022-01-02 2022-01-02 Outpatient R MEGHANN BRASHER [facility] [id number] Univers 14:30:00 14:30:00 MEGHANN BRASHER [id number] i ty [facility] 2021-11-20 2021-11-20 Outpatient GEO [facility] [id number] [place] 00:00:00 00:00:00 GAUDENCIO [facility] 2021-04-04 2021-04-04 Outpatient [facility] [id number] 07:00:00 07:00:00 -[id number] [facility] 2020-12-19 2020-12-19 Outpatient STLMLC [facility] [id number] Common 00:00:00 00:00:00 [facility] 2020-10-31 2020-10-[address] [facility] [id number] Common 00:00:00 00:00:00 [facility] 2020-05-29 2020-05-29 Case [facility] [id number] 00:00:00 00:00:00 Management Ann-Marie James [id number] [place] [id number] Professio [phone] [address] 2020-05-29 2020-05-29 [facility], [facility] [id number] Univers 00:00:00 00:00:00 Management Ann-Marie James [id number] it[id number] [phone] Ct dical [address] 2020-05-17 2020-05-17 Orders Doctor CHAN [id number] 00:00:00 00:00:00 Only Unassigned, JEAN CLAUDE [id number] [facility] [id number] [id number] [facility] 2020-05-17 2020-05-17 Orders Doctor CHAN [id number] Univers 00:00:00 00:00:00 Only Unassigned, JEAN CLAUDE [id number] ity of [facility] 4.2.7.2.686 Sergio as [id number] [address] 2020-05-14 2020-05-14 [facility] [id number] 12:40:00 23:59:00 Encounter Ann-Marie James [id number] [place] [id number] Lucile [id number] [facility] 2020-05-14 2020-05-14 [facility] [id number] [facility] 12:40:00 23:59:00 Encounter Ann-Marie Jamse [id number] [place] [phone] [address] 2020-05-14 2020-05-14 Outpatient R BERNARDO [facility] [id number] Univers 13:00:00 13:00:00 ANN-MARIE [id number] ity [facility] 2020-05-14 2020-05-14 [facility] 1.2.840.114 [id number] 09:21:04 11:38:36 Visit [facility] [place] [id number] [place] [id number] Professio [id number] [address] 2020-05-14 2020-05-14 Office [facility] [id number] Univers 09:21:04 11:38:36 Visit [facility] [place] [id number] i ty [place] [phone] Ct dic[address] 2020-05-14 2020-05-14 Loss Prevention Manager Tripp, Rosie Lab Main [facility] [id number] [facility] 10:55:20 11:10:20 Visit Ann-Marie [place] [id number] [place] [phone] [facility] [address] [facility] 2020-05-14 2020-05-14 Outpatient R MIKHAIL [facility] [id number] Univers 09:30:00 09:30:00 [facility] 2020-05-14 2020-05-14 Telephone Bernardo [facility] [id number] 00:00:00 00:00:00 Ann-Marie [place] [id number] [place] [id number] Professio [phone] [address] 2020-05-14 2020-05-14 Prep For Bernardo [facility] [id number] Univers 00:00:00 00:00:00 Surgery Ann-Marie [facility] [place] [id number] [place] [phone] [facility] 2020-05-14 2020-05-14 Telephone Gramm, [facility] [id number] Univers 00:00:00 00:00:00 Ann-Marie James [id number] it[id number] Profess[place] [phone] [facility] [address] [facility] 2020-05-10 2020-05-10 Orders Doctor DUSTIN 1.2.840.114 [id number] 00:00:00 00:00:00 Only Unassigned, JEAN CLAUDE 350.1.13.10 [facility] 4.2.7.2.686 [id number] 2020-05-10 2020-05-10 Orders Doctor DUSTIN [id number] Univers 00:00:00 00:00:00 Only Unassigned, JEAN CLAUDE [id number] ity of [facility] 4.2.7.2.686 Sergio as [phone] [address] 2020-05-09 2020-05-09 Outpatient [facility] [id number] Common 11:15:00 11:15:00 t Specialty/U Sp [facility] - [facility] Results Test Test Test Results Result Source Description Time Comments Comments CT ABDOMEN 2020-04 Hepatic steatosis. Unive rsity of PELVIS - Bilateral subcentimeter [facility] CONTRAST 19:10:0 nonobstructive renal Bran ch 9 calculi, right more than left. No hydronephrosis, bilateral ureters and urinary bladder are within normallimits. ICurtis MD., have reviewed this study and agree with theabove report.EXAM: CT ABDOMEN PELVIS WO CONTRAST CLINICAL HISTORY: Flank pain, stone disease suspected left distal ureteralstone CT abdomen/pelvis with low dose radiation COMPARISON: None. TECHNIQUE AND FINDINGS: Contiguous axial imaging from the level of the lungbases through the pubic symphysis was performed without the intravenousadministration of contrast. Coronal and sagittal reconstructions wereobtained. ?Auto mA and/or iterative reconstruction were used to reduceradiation dose. FINDINGS: LOWER THORAX: The lung bases are clear. No cardiomegaly. LIVER: Liver is normal in size. Shows diffusely decreased density than thespleen, compatible with hepatic steatosis. No focal hepatic lesions. Normal liver contour. GALLBLADDER AND BILIARY TREE: No biliary ductal dilation. No gallbladderwall thickening. Gallbladder is partially distended with normal wallthickness. No mineralized gallstones are visualized SPLEEN: Normal PANCREAS: No ductal dilation or masses ADRENAL GLANDS: No adrenal nodules KIDNEYS: Both kidneys are normal in size, and morphology. Bilateral subcentimeter nonocclusive calculi are seen, right more thanleft. No hydronephrosis. Bilateral ureters are normal in caliber without any intraluminal fillingdefects suggestive of calculi. PERITONEUM AND RETROPERITONEUM: No free air or fluid. Multiple phlebolithsare seen in the pelvis LYMPH NODES: No lymphadenopathy. GI TRACT: No dilation or wall thickening. Appendix is visualized, and isnormal. PELVIS/BLADDER: Unremarkable. Uterus and bilateral adnexa are unremarkable. VESSELS: Unremarkable. BONES AND SOFT TISSUES: No suspicious lytic or sclerotic bony lesions. [facility], Radiant Results Inft User - 05/14/2020 2:17 PM CDTEXAM: CT ABDOMEN PELVIS WO CONTRASTCLINICAL HISTORY: Flank pain, stone disease suspected left distal ureteralstone CT abdomen/pelvis with low dose radiationCOMPARISON: None.TECHNIQUE AND FINDINGS: Contiguous axial imaging from the level of the lungbases through the pubic symphysis was performed without the intravenousadministration of contrast. Coronal and sagittal reconstructions wereobtained. Auto mA and/or iterative reconstruction were used to reduceradiation dose.FINDINGS:LOWER THORAX: The lung bases are clear. No cardiomegaly.LIVER: Liver is normal in size. Shows diffusely decreased density than thespleen, compatible with hepatic steatosis.No focal hepatic lesions. Normal liver contour.GALLBLADDER AND BILIARY TREE: No biliary ductal dilation. No gallbladderwall thickening. Gallbladder is partially distended with normal wallthickness. No mineralized gallstones are visualizedSPLEEN: NormalPANCREAS: No ductal dilation or massesADRENAL GLANDS: No adrenal nodulesKIDNEYS: Both kidneys are normal in size, and morphology.Bilateral subcentimeter nonocclusive calculi are seen, right more thanleft. No hydronephrosis.Bilateral ureters are normal in caliber without any intraluminal fillingdefects suggestive of calculi.PERITONEUM AND RETROPERITONEUM: No free air or fluid. Multiple phlebolithsare seen in the pelvisLYMPH NODES: No lymphadenopathy.GI TRACT: No dilation or wall thickening. Appendix is visualized, and isnormal.PELVIS/BLADDER: Unremarkable. Uterus and bilateral adnexa are unremarkable.VESSELS: Unremarkable.BONES AND SOFT TISSUES: No suspicious lytic or sclerotic bony lesions.IMPRESSIONHepatic steatosis.Bilateral subcentimeter nonobstructive renal calculi, right more than left.No hydronephrosis, bilateral ureters and urinary bladder are within normallimits.ICurtis MD., have reviewed this study and agree with theabove report. POCT URINALYSIS, INSTRUMENT 2020-05-14 14:35:00 Test Item Value Reference Range Interpretation Comme nts POCT U SP GRAV (test code = 3255) 1.020 mg/dl 1.005-1.025 POCT PH U (test code = 3254) 7.0 mg/dl 5-8 POCT U LEUK EST (test code = 3263) Negative Negative - Negative POCT U NIT (test code = 3262) Negative Negative - Negative POCT U PROT (test code = 3259) Negative Negative - Negative POCT U GLU (test code = 3256) Negative Negative - Negative POCT U KETONE (test code = 3258) Negative Negative - Negative POCT U UROBILI (test code = 3260) 0.2 mg/dl 0.2-1 POCT U BILI (test code = 3261) Negative Negative - Negative POCT U BLD (test code = 3257) trace Negative - Negative POCT U COLOR (test code = 3266) yellow POCT U APPEAR (test code = 3267) clear Lab Interpretation (test code = 53710-5) Abnormal [facility] URINALYSIS, [id number] 14:35:00 Test Item Value Reference Range Interpretation Comments POCT U SP GRAV (test code = 1.020 mg/dl 1.005-1.025 3255) POCT PH U (test code = 3254) 7.0 mg/dl 5-8 POCT U LEUK EST (test code = Negative Negative - Negative 3263) POCT U NIT (test code = 3262) Negative Negative - Negative POCT U PROT (test code = Negative Negative - Negative 3259) POCT U GLU (test code = 3256) Negative Negative - Negative POCT U KETONE (test code = Negative Negative - Negative 3258) POCT U UROBILI (test code = 0.2 mg/dl 0.2-1 3260) POCT U BILI (test code = Negative Negative - Negative 3261) POCT U BLD (test code = 3257) trace Negative - Negative POCT U COLOR (test code = yellow 3266) POCT U APPEAR (test code = clear 3267) Lab Interpretation (test code Abnormal = 81653-6) [facility] URINALYSIS, [id number] 14:35:00 Test Item Value Reference Range Interpretation Comments POCT U SP GRAV (test code = 1.020 mg/dl 1.005-1.025 3255) POCT PH U (test code = 3254) 7.0 mg/dl 5-8 POCT U LEUK EST (test code = Negative Negative - Negative 3263) POCT U NIT (test code = 3262) Negative Negative - Negative POCT U PROT (test code = Negative Negative - Negative 3259) POCT U GLU (test code = 3256) Negative Negative - Negative POCT U KETONE (test code = Negative Negative - Negative 3258) POCT U UROBILI (test code = 0.2 mg/dl 0.2-1 3260) POCT U BILI (test code = Negative Negative - Negative 3261) POCT U BLD (test code = 3257) trace Negative - Negative POCT U COLOR (test code = yellow 3266) POCT U APPEAR (test code = clear 3267) Lab Interpretation (test code Abnormal = 45085-0) [facility] URINALYSIS, [id number] 14:35:00 Test Item Value Reference Range Interpretation Comments POCT U SP GRAV (test code = 1.020 mg/dl 1.005-1.025 3255) POCT PH U (test code = 3254) 7.0 mg/dl 5-8 POCT U LEUK EST (test code = Negative Negative - Negative 3263) POCT U NIT (test code = 3262) Negative Negative - Negative POCT U PROT (test code = Negative Negative - Negative 3259) POCT U GLU (test code = 3256) Negative Negative - Negative POCT U KETONE (test code = Negative Negative - Negative 3258) POCT U UROBILI (test code = 0.2 mg/dl 0.2-1 3260) POCT U BILI (test code = Negative Negative - Negative 326) POCT U BLD (test code = 3257) trace Negative - Negative POCT U COLOR (test code = yellow 3266) POCT U APPEAR (test code = clear 326) Lab Interpretation (test code Abnormal = 25901-0) [facility]
== END 2022-05-06 19:01 | disposition home or self-care (01) ==
LOC: ER 01:18 → ERHOLD 07:41 → 2ND-WC 14:27
PROVIDERS: ADMIT Family Medicine; ATTEND Family Medicine
DX: N13.2 Hydronephrosis with renal and ureteral calculous obstruction (principal); I10 Essential (primary) hypertension; R11.2 Nausea with vomiting, unspecified; Z87.442 Personal history of urinary calculi; Z20.822 Contact with and (suspected) exposure to COVID-19
CPT/HCPCS: 87088; 85025; 87086; 80048; 36415; 76377; 74176; 96375; 96374; 99285; 87811; J2550; J3475; J2175 ×2; J7030; J2405; G0378 ×2; 81003; 81015

== ENCOUNTER 2022-09-25 17:04 | Emergency (ER) | payer OTHER, BC ==
--- OUTSIDE RECORDS SUMMARY | 2022-09-25 17:08 | XMS REPORT | Continuity of Care Document ---
:1965 Author Organization [facility] t Address [address] [place] [address] Care Team Providers Name Role Phone JESUS CUELLAR Primary Care Physician Unavailable Jesus Cuellar Attending Clinician Unavailable YAEL MEDRANO Attending Clinician Unavailable Geo VELAZQUEZ, Gaudencio Ceballos Attending Clinician [phone] Gramm Ann-Marie SALEEM Attending Clinician Doctor Unassigned, [place] Attending Clinician Unavailable Yael Medrano MD Attending Clinician Pob, [facility] Main Attending Clinician Unavailable YAEL MEDRANO Admitting Clinician Unavailable Payers Payer Name Policy Type Policy Number Effective Date Expiration Date Porfirio plunkett [facility] [id number] 2017 00:00:00 SELECT Problems Condition Condition Condition Status Onset Resolution Last Treating Co mments Source Name Details Category Date Date Treatment Clinician Date Hydronephr Hydronephr Disease Active Overview : Univers osis with osis with 7-27 Added ity of urinary urinary 00:00: automatic [place] obstructio obstructio 00 ally from Medical n due to n due to request Bran h ureteral ureteral for calculus calculus surgery [id number] No known No known Disease Unive rs active active ity of problems problems [facility] Kidney Kidney Problem Common stone stones [facility] [id number] Recurrent Problem Co mmon [id number] kidney [facility] stones [facility] [id number] Ureterolit Problem Com mon hiasis [facility] Allergies, Adverse Reactions, Alerts Allergy Allergy Status Severity Reaction(s) Onset Inactive Treating Comm ents Source Name Type Date Date Clinician NO KNOWN Drug Active Univers ALLERGIE Class ity of S [facility] No Known DA Active [facility] Social History Social Habit Start Date Stop Date Quantity Comments Source Exposure to Not sure [facility] SARS-CoV-2 (event) Medica l Branch History of Tobacco [facility] Use [facility] al Echo Sex Ass[birth year] At [birth year] [facility] 00:00:00 00:00:00 Smoking Status Start Date Stop Date Source Tobacco smoking consumption [facility] unknown Never Smoker [facility] Medications Ordered Filled Start Stop Current Ordering Indication Dosage Frequency Signature Comments Components Source Medication Medication Date Date Medication? Clinician (SIG) Name Name amlodipine 0 Yes Take by Univ ers besylate 7-27 mouth. ity of (AMLODIPINE 16:01: [place] [facility]AL) 14 Medical Branch nebivolol 0 Yes Take by Unive rs HCl 7-27 mouth. ity of (BYSTOLIC 16:01: [place] ORAL) Medical Branch ascorbic 0 Yes Take by Univer s acid 7-27 mouth. ity of (VITAMIN C 16:01: [place] ORAL) Medical Branch BIOTIN ORAL 0 Yes Take by Uni vers 7-27 mouth. ity of 16:01: [place] 14 [facility] Branch amlodipine 20200 Yes Take by Uni vers besylate 7-27 mouth. ity of (AMLODIPINE 16:01: [place] ORAL) 14 Medical Branch nebivolol 20200 Yes Take by Unive rs HCl 7-27 mouth. ity of (BYSTOLIC 16:01: [place] ORAL) 14 Medical Branch ascorbic 2020-0 Yes Take by Univer s acid 7-27 mouth. ity of (VITAMIN C 16:01: [place] ORAL) 14 Medical Branch BIOTIN ORAL 2020-0 Yes Take by Uni vers 7-27 mouth. ity of 16:01: [place] 14 [facility] Branch amlodipine 2020-0 Yes Take by Univ ers besylate 7-27 mouth. ity of (AMLODIPINE 16:01: [place] ORAL) 14 Medical Branch nebivolol 2020-0 Yes Take by Unive rs HCl 7-27 mouth. ity of (BYSTOLIC 16:01: [place] ORAL) 14 Medical Branch ascorbic 2020-0 Yes Take by Univer s acid 7-27 mouth. ity of (VITAMIN C 16:01: [place] ORAL) 14 Medical Branch BIOTIN ORAL 2020-0 Yes Take by Uni vers 7-27 mouth. ity of 16:01: [place] 14 [facility] amlodipine 2020-0 Yes Take by Univ ers besylate 7-27 mouth. ity of (AMLODIPINE 16:01: [place] ORAL) 14 Medical Branch nebivolol 2020-0 Yes Take by Unive rs HCl 7-27 mouth. ity of (BYSTOLIC 16:01: [place] ORAL) 14 Medical Branch ascorbic 2020-0 Yes Take by Univer s acid 7-27 mouth. ity of (VITAMIN C 16:01: [place] ORAL) 14 Medical Branch BIOTIN ORAL 2020-0 Yes Take by Uni vers 7-27 mouth. ity of 16:01: [place] 14 [facility] amlodipine 2020-0 Yes Take by Univ ers besylate 7-27 mouth. ity of (AMLODIPINE 16:01: [place] ORAL) 14 Medical Branch nebivolol 2020-0 Yes Take by Unive rs HCl 7-27 mouth. ity of (BYSTOLIC 16:01: [place] ORAL) 14 Medical Branch ascorbic 2020-0 Yes Take by Univer s acid 7-27 mouth. ity of (VITAMIN C 16:01: [place] ORAL) 14 Medical Branch BIOTIN ORAL 2020-0 Yes Take by Uni vers 7-27 mouth. ity of 16:01: [place] 14 [facility] amlodipine 2020-0 Yes Take by Univ ers besylate 7-27 mouth. ity of (AMLODIPINE 16:01: [place] ORAL) 14 Medical Branch nebivolol 2020-0 Yes Take by Unive rs HCl 7-27 mouth. ity of (BYSTOLIC 16:01: [place] ORAL) 14 Medical Branch ascorbic 2020-0 Yes Take by Univer s acid 7-27 mouth. ity of (VITAMIN C 16:01: [place] ORAL) 14 Medical Branch BIOTIN ORAL 2020-0 Yes Take by Uni vers 7-27 mouth. ity of 16:01: [place] 14 [facility] Branch amlodipine 2020-0 Yes Take by Univ ers besylate 7-27 mouth. ity of (AMLODIPINE 16:01: [place] ORAL) 14 Medical Branch nebivolol 2020-0 Yes Take by Unive rs HCl 7-27 mouth. ity of (BYSTOLIC 16:01: [place] ORAL) 14 Medical Branch ascorbic 2020-0 Yes Take by Univer s acid 7-27 mouth. ity of (VITAMIN C 16:01: [place] ORAL) 14 Medical Branch BIOTIN ORAL 2020-0 Yes Take by Uni vers 7-27 mouth. ity of 16:01: [place] 14 [facility] Branch amlodipine 2020-0 Yes Take by Univ ers besylate 7-27 mouth. ity of (AMLODIPINE 16:01: [place] ORAL) 14 Medical Branch nebivolol 2020-0 Yes Take by Unive rs HCl 7-27 mouth. ity of (BYSTOLIC 16:01: [place] ORAL) Medical Branch ascorbic 2020-0 Yes Take by Univer s acid 7-27 mouth. ity of (VITAMIN C 16:01: [place] ORAL) Medical Branch BIOTIN ORAL 2019-0 Yes Take by Uni vers 7-27 mouth. ity of 16:01: [place] [address] [place] [address] Branch amlodipine 2019-0 Yes Take by Univ ers besylate 7-27 mouth. ity of (AMLODIPINE 16:01: [place] ORAL) Medical Branch nebivolol 2020-0 Yes Take by Unive rs HCl 7-27 mouth. ity of (BYSTOLIC 16:01: [place] ORAL) Medical Branch ascorbic 2020-0 Yes Take by Univer s acid 7-27 mouth. ity of (VITAMIN C 16:01: [place] ORAL) Medical Branch BIOTIN ORAL 2019-0 Yes Take by Uni vers 7-27 mouth. ity of 16:01: [address] No known No Univers medications ity of [facility] No known No Univers medications ity of [facility] Amlodipine Amlodipine Yes Linda 1 tablet Common Besylate Besylate [place] [facility] Bystolic Bystolic Yes Linda 1 tablet Co mmon [facility] Bystolic 20 Bystolic 20 No 1{table QD Bystolic MG MG t} 20 MG amLODIPine amLODIPine No 1{table QD amLODIPine Besylate 5 Besylate 5 t} Besylate 5 MG MG MG amLODIPine amLODIPine No 1{table QD amLODIPine Besylate 5 Besylate 5 t} Besylate 5 MG MG MG Bystolic 20 Bystolic 20 No 1{table QD Bystolic MG MG t} 20 MG Vital Signs Vital Name Observation Time Observation Value Comments Source height 2022-07-30 09:45:00 61 [in_i] [facility] weight 2022-07-30 09:45:00 177 [lb_av] [facility] temperature 2022-07-30 09:45:00 97.6 [degF] [facility] bmi 2022-07-30 09:45:00 33.44 kg/m2 [facility] oximetry 2022-07-30 09:45:00 96 % [facility] respiratory rate 2022-07-30 09:45:00 16 /min Comm on [facility] blood pressure 2022-07-30 09:45:00 159 mm[Hg] [facility] - systolic [facility] blood pressure 2022-07-30 09:45:00 79 mm[Hg] [facility] diastolic [facility] height 2022-05-19 15:30:00 61 [in_i] [facility] weight 2022-05-19 15:30:00 184.6 [lb_av] [facility] temperature 2022-05-19 15:30:00 97.7 [degF] [facility] bmi 2022-05-19 15:30:00 34.88 kg/m2 [facility] oximetry 2022-05-19 15:30:00 95 % [facility] respiratory rate 2022-05-19 15:30:00 16 /min Comm on [facility] blood pressure 2022-05-19 15:30:00 161 mm[Hg] [facility] - systolic [facility] blood pressure 2022-05-19 15:30:00 81 mm[Hg] [facility] - diastolic [facility] Systolic blood 2020-05-14 14:35:00 168 mm[Hg] Univer sity of pressure [facility] Diastolic blood 2020-05-14 14:35:00 88 mm[Hg] Unive rsity of pressure [facility] Heart rate 2020-05-14 14:35:00 76 /min Universi ty of [facility] Body temperature 2020-05-14 14:35:00 36.39 Lissa Univ ersity of [facility] Respiratory rate 2020-05-14 14:35:00 18 /min Univ ersity of [facility] Body weight 2020-05-14 14:35:00 83.099 kg Universi ty of [facility] Systolic blood 2020-05-14 14:35:00 168 mm[Hg] Univer sity of pressure [facility] Diastolic blood 2020-05-14 14:35:00 88 mm[Hg] Unive rsity of pressure [facility] Heart rate 2020-05-14 14:35:00 76 /min Universi ty of [facility] Body temperature 2020-05-14 14:35:00 36.39 Lissa Univ ersity of [facility] Respiratory rate 2020-05-14 14:35:00 18 /min Univ ersity of [place] [facility] Body weight 2020-05-14 14:35:00 83.099 kg Universi ty of [facility] Procedures Procedure Date / Time Performed Performing Clinician [facility] e CT CHEST WO CONTRAST 2021-11-20 17:18:48 Gaudencio Che Met [facility] A. EXTERNAL PROVIDER 2020-05-17 05:01:00 Doctor Unassigned, No [facility] [place] RECORDS Name Medical Branch CT ABDOMEN PELVIS WO 2020-05-14 18:05:55 Ann-Marie Calabrese [facility] ity of [place] CONTRAST Medical Branch POCT URINALYSIS AUTO 2020-05-14 14:34:00 Yael Medrano [facility] ity of [place] [facility] REFERRAL- 2020-05-10 05:01:00 Doctor Unassigned, No Univer [facility] [place] REQUEST/RESPONSE Name Medical Branch Plan of Care Planned Activity Planned Date Details Comments Source Future Scheduled 2022-08-19 HEPATITIS B VACCINES [facility] Test 06:44:56 (1 of 3 - 3-dose series) [code = HEPATITIS B VACCINES (1 of 3 - 3-dose series)] Future Scheduled 2022-08-19 Pneumococcal Vaccine: [facility] Test 06:44:56 Pediatrics (0 to 5 Years) and At-Risk Patients (6 to 64 Years) (1 - PCV) [code = Pneumococcal Vaccine: Pediatrics (0 to 5 Years) and At-Risk Patients (6 to 64 Years) (1 - PCV)] Future Scheduled 2022-08-19 Hepatitis C screening [facility] Test 06:44:56 (procedure) [code = 394643371] Future Scheduled 2022-08-19 Screening for [facility] Test 06:44:56 malignant neoplasm of cervix (procedure) [code = 721066554] Future Scheduled 2022-08-19 BREAST CANCER [facility] Test 06:44:56 SCREENING [code = BREAST CANCER SCREENING] Future Scheduled 2022-08-19 COLONOSCOPY SCREENING [facility] Test 06:44:56 [code = COLONOSCOPY SCREENING] Future Scheduled 2022-08-19 SHINGLES VACCINES (1 Met [facility] Test 06:44:56 of 2) [code = SHINGLES VACCINES (1 of 2)] Future Scheduled 2022-08-19 COVID-19 VACCINE (3 - [facility] Test 06:44:56 Booster for Moderna series) [code = COVID-19 VACCINE (3 - Booster for Moderna series)] Future Scheduled 2022-08-19 INFLUENZA VACCINE Method [facility] Test 06:44:56 [code = INFLUENZA VACCINE] Encounters Start End Encounter Admission Attending Care Care Encounter Source Date/Time Date/Time Type Type Clinicians Facility Department ID 2022-05-08 Outpatient MARLON Cuellar [facility] [id number] Common 16:50:01 Jesus [facility] 2021-11-13 Outpatient [facility] [id number] Common 11:32:34 02753 [facility] 2021-08-16 Outpatient Sarah MEDRANO [facility] [id number] Univers 09:04:36 YAEL hannah [facility] 2022-07-30 2022-07-30 OFFICE [facility] [id number] Co mmon 00:00:00 00:00:00 VISIT Jani ESTAB PT - [facility] LEVEL 2 [facility] 2022-05-19 2022-05-19 OFFICE [facility] [id number] Co mmon 00:00:00 00:00:00 VISIT EST Spir it PT LEVEL 3 - [facility] 2022-03-28 2022-03-28 Transcribe Geo, 1.2.840.1 [id number] Methodi 00:00:00 00:00:00 Orders Gaudencio Gray. 26621.1.1 268 s t 3.430.2.7 Hospit a .3.160106 l .8 2021-11-20 2021-11-20 [facility] Geo, 1.2.840.1 [id number] Methodi 10:54:34 23:59:00 Encounter Gaudencio Gray. [address]704.1.[address] 3.430.2.7 Hospit a .3.569517 l .8 2021-11-20 2021-11-20 Orders Geo, 1.2.840.1 [id number] Methodi 00:00:00 00:00:00 Only Gaudencio Gray. 67304.1.1 267 s t 3.430.2.7 Hospit a .3.705446 l .8 2021-11-20 2021-11-20 Travel 1.2.840.1 1.2.632.267 [id number] Methodi 00:00:00 00:00:[address] 3.430.2.7 0.2.7.3.698 Ho spita .3.084470 084.8 l .8 2021-11-20 2021-11-20 Outpatient GEO, [facility] [id number] [place] 00:00:00 00:00:[address] 2021-11-12 2021-11-12 Travel 1.2.840.1 1.2.158.677 [id number] Methodi 00:00:00 00:00:[address] 3.430.2.7 0.2.7.3.698 Ho spita .3.684522 084.8 l .8 2021-11-12 2021-11-12 Transcribe Geo, 1.2.840.1 [id number] Methodi 00:00:00 00:00:00 Orders Gaudencio Gray. 09212.1.1 532 s t 3.430.2.7 Hospit a .3.616116 l .8 2021-04-04 2021-04-04 Outpatient [facility] [id number] 07:00:00 07:00: -[id number] [facility] 2020-12-19 2020-12-19 Outpatient [facility] [id number] Common 00:00:00 00:00:00 [facility] 2020-10-31 2020-10-31 Outpatient [facility] [id number] Common 00:00:00 00:00:00 [facility] 2020-05-29 2020-05-29 Case [facility], [facility] 1.2.840.114 [id number] 00:00:00 00:00:00 Management Ann-Marie James 350.1.13.10 [place] 4.2.7.2.686 Professio [phone] nal [address] [place] [address] 2020-05-29 2020-05-29 [facility], [facility] 1.2.840.114 [id number] Univers 00:00:00 00:00:00 Management Ann-Marie James 350.1.13.10 ity of [place]2.[place] [phone] [place] dical nal 204 [facility] 2020-05-17 2020-05-17 Orders Doctor CHAN 1.2.840.114 [id number] 00:00:00 00:00:00 Only Unassigned, JEAN CLAUDE 350.1.13.10 [place] [facility] 4.2.7.2.[id number] [facility] 2020-05-17 2020-05-17 Orders Doctor CHAN 1.2.840.114 [id number] Univers 00:00:00 00:00:00 Only Unassigned, JEAN CLAUDE 350.1.13.10 ity of [place] [facility] 4.2.7.2.686 Sergio as [phone] [address] 2020-05-14 2020-05-14 [facility] 1.2.840.114 [id number] 12:40:00 23:59:00 Encounter Ann-Marie James 350.1.13.10 [place] 4.2.7.2.686 [place] [id number] [facility] 2020-05-14 2020-05-14 [facility] 1.2.840.114 [id number] Univers 12:40:00 23:59:00 Encounter Ann-Marie Gray Erika 350.1.13.10 ity of [place].2.[place] [phone] [address] 2020-05-14 2020-05-14 Office [facility] 1.2.840.114 [id number] [facility] 09:21:04 11:38:36 Visit Yael Geronimo 350.1.13.10 [place] 4.2.7.2.686 Professio [phone] [facility] 204 [facility] 2020-05-14 2020-05-14 Office [facility] 1.2.840.114 [id number] [facility] 09:21:04 11:38:36 Visit Yael Geronimo 350.1.13.10 i ty of [place].2.[place] [phone] S[place] dical nal 204 [facility] 2020-05-14 2020-05-14 Inletter Tripp, Rosie Lab Main [facility] 1.2.8 40.114 [id number] Univers 10:55:20 11:10:20 Visit Ann-Marie Calabrese Erika 350.1.13.10 ity of [place].2.[place] [phone] Sd dical nal 353 [facility] 2020-05-14 2020-05-14 Outpatient R MITCHELL [facility] [id number] Univers 09:30:00 09:30:00 YAEL ity of [facility] 2020-05-14 2020-05-14 Telephone [facility] 1.2.049.489 [id number] 00:00:00 00:00:00 Ann-Marie James 350.1.13.10 [place] 4.2.7.2.686 Professio [phone] [address] 2020-05-14 2020-05-14 Prep For Bharati UTMARIEL 1.2.840.114 [id number] Univers 00:00:00 00:00:00 Surgery Ann-Marie James 350.1.13.10 ity of [place].2.[place] [phone] [address] 2020-05-14 2020-05-14 Telephone Bharati, IAMB 1.2.124.899 [id number] Univers 00:00:00 00:00:00 Ann-Marie James 350.1.13.10 ity of [place].2.[place] [phone] [address] 2020-05-10 2020-05-10 Orders Doctor DUSTIN 1.2.840.114 [id number] 00:00:00 00:00:00 Only Unassigned, JEAN CLAUDE 350.1.13.10 [place] [facility] 4.2.7.2.[id number] [facility] 2020-05-10 2020-05-10 Orders Doctor DUSTIN 1.2.840.114 [id number] Univers 00:00:00 00:00:00 Only Unassigned, JEAN CLAUDE 350.1.13.10 ity of [place] [facility] 4.2.7.2.686 Sergio as [phone] [address] 2020-05-09 2020-05-09 Outpatient [facility] [id number] Common 11:15:00 11:15:00 t Specialty/U Sp [facility] - [facility] Results Test Test Test Results Result Source Description Time Comments Comments CT ABDOMEN 2020-04 Hepatic steatosis. Unive rsity of PELVIS WO -27 Bilateral subcentimeter [facility] CONTRAST 19:10:0 nonobstructive renal Bran ch 9 calculi, right more than left. No hydronephrosis, bilateral ureters and urinary bladder are within normallimits. Curtis Merida MD., have reviewed this study and agree [...] 3267) clear Lab Interpretation (test code = 07059-4) [facility] [id number] 14:35:00 Test Item Value Reference Range Interpretation [...] 3267) Lab Interpretation (test code Abnormal = 79488-2) [facility] URINALYSIS, [id number] 14:35:00 Test Item Value Reference Range Interpretation [...] 3267) Lab Interpretation (test code Abnormal = 65629-5) [facility] URINALYSIS, [id number] 14:35:00 Test Item Value Reference Range Interpretation Comments POCT U SP GRAV (test code = 1.020 mg/dl 1.005-1.025 3255) POCT PH U (test code = 3254) 7.0 mg/dl 5-8 POCT U LEUK EST (test code = Negative Negative - Negative 3263) POCT U NIT (test code = 3262) Negative Negative - Negative POCT U PROT (test code = Negative Negative - Negative 325) POCT U GLU (test code = 3256) Negative Negative - Negative POCT U KETONE (test code = Negative Negative - Negative 3257) POCT U UROBILI (test code = 0.2 mg/dl 0.2-1 326) POCT U BILI (test code = Negative Negative - Negative 326) POCT U BLD (test code = 3257) trace Negative - Negative POCT U COLOR (test code = yellow 3266) POCT U APPEAR (test code = clear 3266) Lab Interpretation (test code Abnormal = 76062-7) [facility]
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
[2022-09-25] MEDS ORDERED: ACETAMINOPHEN 500 MG TAB ONE (18:37)
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
[2022-09-25 20:12] VITALS: BP 154/78; O2SAT 96
== END 2022-09-25 19:12 | disposition home or self-care (01) ==
LOC: ER 17:04
DX: R51.9 Headache, unspecified (principal); V43.62XA Car passenger injured in collision with other type car in traffic accident, initial encounter; I10 Essential (primary) hypertension
CPT/HCPCS: 70450; 99284

== ENCOUNTER 2023-05-02 00:14 | Emergency (ER) | payer OTHER ==
--- OUTSIDE RECORDS SUMMARY | 2023-05-02 00:18 | XMS REPORT | Continuity of Care Document ---
:1965 Author Organization [facility] t Address [address] [place] [address] [address] [place] [address] Care Team Providers Name Role Phone Milton Cuellar MD Primary Care Physician Milton Cuellar Attending Clinician Unavailable YAEL MEDRANO Attending Clinician Unavailable Chinedu VELAZQUEZ, Colt Ceballos Attending Clinician [phone] Gramm Ann-Marie SALEEM Attending Clinician Doctor Unassigned, [place] Attending Clinician Unavailable Yael Medrano MD Attending Clinician Pob, [facility] Main Attending Clinician Unavailable YAEL MEDRANO Admitting Clinician Unavailable Payers Payer Name Policy Type Policy Number Effective Date Expiration Date Porfirio plunkett [facility] [id number] 2017 00:00:00 SELECT Problems Condition Condition Condition Status Onset Resolution Last Treating Co mments Source Name Details Category Date Date Treatment Clinician Date Hydronephr Hydronephr Disease Active Overview : Univers osis with osis with 7-27 Added ity of urinary urinary 00:00: automatic [place] obstructio obstructio 00 ally from Medical n due to n due to request [facility] h ureteral ureteral for calculus calculus surgery [id number] No known No known Disease Unive rs active active ity of problems problems [facility] Kidney Bilateral Problem Common stone kidney [facility] stones [facility] [id number] Recurrent Problem Co mmon [id number] nephrolith [facility] iasis [facility] [id number] Ureterolit Problem Com mon hiasis [facility] Allergies, Adverse Reactions, Alerts Allergy Allergy Status Severity Reaction(s) Onset Inactive Treating Comm ents Source Name Type Date Date Clinician NO KNOWN Drug Active Univers ALLERGIE Class ity of S [facility] No Known DA Active [facility] Social History Social Habit Start Date Stop Date Quantity Comments Source Exposure to Not sure [facility] SARS-CoV-2 (event) [facility] Gender identity [facility] Sexual orientation Method [facility] History of Tobacco Common [facility] - [facility] Use [facility] Sex Assigned [birth year] [facility] 00:00:00 00:00:00 Smoking Status Start Date Stop Date Source Tobacco smoking consumption [facility] unknown Never Smoker [facility] Medications Ordered Filled Start Stop Current Ordering Indication Dosage Frequency Signature Comments Components Source Medication Medication Date Date Medication? Clinician (SIG) Name Name amlodipine 0 Yes Take by Univ ers besylate 7-27 mouth. ity of (AMLODIPINE 16:01: [place] ORAL) [address] [place] [address] nebivolol 0 Yes Take by Unive rs HCl 7-27 mouth. ity of (BYSTOLIC 16:01: [place] ORAL) Medical Branch ascorbic 2020-0 Yes Take by Univer s acid 7-27 mouth. ity of (VITAMIN C 16:01: [place] ORAL) Medical [place] BIOTIN ORAL 2020-0 Yes Take by Uni vers 7-27 mouth. ity of 16:01: [place] 14 [facility] Branch amlodipine 2020-0 Yes Take by Univ ers besylate 7-27 mouth. ity of (AMLODIPINE 16:01: [place] ORAL) 14 Medical Branch nebivolol 2020-0 Yes Take by Unive rs HCl 7-27 mouth. ity of (BYSTOLIC 16:01: [place] ORAL) 14 [facility] ascorbic 2020-0 Yes Take by Univer s [...] 16:01: [place] ORAL) Medical Branch BIOTIN ORAL 2020-0 Yes Take by Uni vers 7-27 mouth. ity of 16:01: [place] 14 [facility] amlodipine 2019-0 Yes Take by Univ ers besylate 7-27 mouth. ity of (AMLODIPINE 16:01: [place] ORAL) Medical Branch nebivolol 2020-0 Yes Take by Unive rs HCl 7-27 mouth. ity of (BYSTOLIC 16:01: [place] ORAL) Medical Branch ascorbic 2020-0 Yes Take by Univer s acid 7-27 mouth. ity of (VITAMIN C 16:01: [place] ORAL) Medical Branch BIOTIN ORAL 2020-0 Yes Take by Uni vers 7-27 mouth. ity of 16:01: [place] 14 Medical Branch No known No Univers medications ity of [facility] No known No Univers medications ity of [facility] Amlodipine Amlodipine Yes Linda 1 tablet Common Besylate Besylate [place] Bystolic Bystolic Yes Linda 1 tablet Co mmon [facility] Bystolic 20 Bystolic 20 No 1{table QD [...] Observation Time Observation Value Comments Source height 2022-10-02 11:30:00 61 [in_i] [facility] weight 2022-10-02 11:30:00 172 [lb_av] [facility] temperature 2022-10-02 11:30:00 98.3 [degF] [facility] bmi 2022-10-02 11:30:00 32.5 kg/m2 [facility] oximetry 2022-10-02 11:30:00 97 % [facility] respiratory rate 2022-10-02 11:30:00 17 /min Comm on [facility] blood pressure 2022-10-02 11:30:00 165 mm[Hg] Common [facility] - systolic [facility] blood pressure 2022-10-02 11:30:00 85 mm[Hg] [facility] [place] [place] diastolic [facility] height 2022-07-30 09:45:00 61 [in_i] [facility] weight 2022-07-30 09:45:00 177 [lb_av] [facility] temperature 2022-07-30 09:45:00 97.6 [degF] [facility] bmi 2022-07-30 09:45:00 33.44 kg/m2 [facility] oximetry 2022-07-30 09:45:00 96 % [facility] respiratory rate 2022-07-30 09:45:00 16 /min Comm on [facility] blood pressure 2022-07-30 09:45:00 159 mm[Hg] Common [facility] - systolic [facility] blood pressure 2022-07-30 09:45:00 79 mm[Hg] Common [facility] - diastolic [facility] height 2022-05-19 15:30:00 61 [in_i] [facility] weight 2022-05-19 15:30:00 184.6 [lb_av] Common [facility] temperature 2022-05-19 15:30:00 97.7 [degF] Common [facility] bmi 2022-05-19 15:30:00 34.88 kg/m2 [facility] oximetry 2022-05-19 15:30:00 95 % [facility] respiratory rate 2022-05-19 15:30:00 16 /min Comm on [facility] blood pressure 2022-05-19 15:30:00 161 mm[Hg] Common [facility] - systolic [facility] blood pressure 2022-05-19 15:30:00 81 mm[Hg] Common [facility] diastolic [facility] Systolic blood 2020-05-14 14:35:00 168 mm[Hg] Univer sity of [facility] Diastolic blood 2020-05-14 14:35:00 88 mm[Hg] Unive rsity of [facility] Heart rate 2020-05-14 14:35:00 76 /min [facility] Body temperature 2020-05-14 14:35:00 36.39 Lissa [facility] Respiratory rate 2020-05-14 14:35:00 18 /min [facility] Body weight 2020-05-14 14:35:00 83.099 kg [facility] Systolic blood 2020-05-14 14:35:00 168 mm[Hg] Univer sity of [facility] Diastolic blood 2020-05-14 14:35:00 88 mm[Hg] [facility] Heart rate 2020-05-14 14:35:00 76 /min [facility] Body temperature 2020-05-14 14:35:00 36.39 Lissa [facility] Respiratory rate 2020-05-14 14:35:00 18 /min [facility] Body weight 2020-05-14 14:35:00 83.099 kg [facility] Procedures Procedure Date / Time Performed Performing Clinician Sourbrice e CT CHEST WO CONTRAST 2021-11-20 17:18:48 Colt Che Met [facility]. EXTERNAL PROVIDER 2020-05-17 05:01:00 Doctor Unassigned, No [facility] RECORDS Name [facility] CT ABDOMEN PELVIS WO 2020-05-14 18:05:55 Ann-Marie Calabrese [facility] POCT URINALYSIS AUTO 2020-05-14 14:34:00 Yael Medrano [facility] REFERRAL- 2020-05-10 05:01:00 Doctor Unassigned, No [facility] REQUEST/RESPONSE Name [facility] Plan of Care Planned Activity Planned Date Details Comments Source Future Scheduled 2023-05-02 BREAST CANCER [facility] Test 00:16:58 SCREENING [code = BREAST CANCER SCREENING] Future Scheduled 2023-05-02 Screening for [facility] Test 00:16:58 malignant neoplasm of colon (procedure) [code = 848704740] Future Scheduled 2023-05-02 SHINGLES VACCINES (1 [facility] Test 00:16:58 of 2) [code = SHINGLES VACCINES (1 of 2)] Future Scheduled 2023-05-02 COVID-19 VACCINE ([facility] - [facility] Test 00:16:58 Moderna series) [code = COVID-19 VACCINE (3 - Moderna series)] Future Scheduled 2023-05-02 Screening for [facility] Test 00:16:58 malignant neoplasm of colon (procedure) [code = 975704534] Future Scheduled 2023-05-02 Screening for [facility] Test 00:16:58 malignant neoplasm of colon (procedure) [code = 806378484] Future Scheduled 2023-05-02 INFLUENZA VACCINE [facility] Test 00:16:58 [code = INFLUENZA VACCINE] Future Scheduled 2023-05-02 Screening for [facility] Test 00:16:58 malignant neoplasm of colon (procedure) [code = 506172753] Future Scheduled 2023-05-02 Screening for [facility] Test 00:16:58 malignant neoplasm of colon (procedure) [code = 974083568] Future Scheduled 2023-05-02 Hepatitis C screening [facility] Test 00:16:58 (procedure) [code = 738506886] Future Scheduled 2023-05-02 Screening for [facility] Test 00:16:58 malignant neoplasm of cervix (procedure) [code = 972511665] Future Scheduled 2022-08-19 HEPATITIS B VACCINES [facility] Test 06:44:56 (1 of 3 - 3-dose series) [code = HEPATITIS B VACCINES (1 of 3 - 3-dose series)] Future Scheduled 2022-08-19 Pneumococcal Vaccine: [facility] Test 06:44:56 Pediatrics (0 to 5 Years) and At-Risk Patients (6 to 64 Years) (1 - PCV) [code = Pneumococcal Vaccine: Pediatrics (0 to 5 Years) and At-Risk Patients (6 to 64 Years) (1 - PCV)] Future Scheduled 2022-08-19 Hepatitis C screening [facility] Test 06:44:56 (procedure) [code = 822735720] Future Scheduled 2022-08-19 Screening for [facility] Test 06:44:56 malignant neoplasm of cervix (procedure) [code = 355006832] Future Scheduled 2022-08-19 BREAST CANCER [facility] Test 06:44:56 SCREENING [code = BREAST CANCER SCREENING] Future Scheduled 2022-08-19 COLONOSCOPY SCREENING [facility] Test 06:44:56 [code = COLONOSCOPY SCREENING] Future Scheduled 2022-08-19 SHINGLES VACCINES (1 [facility] Test 06:44:56 of 2) [code = SHINGLES VACCINES (1 of 2)] Future Scheduled 2022-08-19 COVID-19 VACCINE (3 - [facility] Test 06:44:56 Booster for Moderna series) [code = COVID-19 VACCINE (3 - Booster for Moderna series)] Future Scheduled 2022-08-19 INFLUENZA VACCINE [facility] Test 06:44:56 [code = INFLUENZA VACCINE] Encounters Start End Encounter Admission Attending Care Care Encounter Source Date/Time Date/Time Type Type Clinicians Facility Department ID 2022-05-[address] [facility] [id number] Common 16:50:01 [facility] 2021-11-13 Outpatient STLMLC STLMLC [id number] Common 11:32:34 [id number] [facility] 2021-08-16 Outpatient Sarah MEDRANO [facility] [id number] Univers 09:04:36 [facility] 2022-10-02 2022-10-02 OFFICE STLMLC STLMLC [id number] Co mmon 00:00:00 00:00:00 VISIT Spirit ESTAB PT - CHI LEVEL 2 [facility] 2022-07-30 2022-07-30 OFFICE STLMLC STLMLC [id number] Co mmon 00:00:00 00:00:00 VISIT Spirit ESTAB PT - CHI LEVEL 2 [facility] 2022-05-19 2022-05-19 OFFICE STLMLC STLMLC [id number] Co mmon 00:00:00 00:00:00 VISIT EST Spir it PT LEVEL 3 - [facility] 2022-03-28 2022-03-28 Transcribe Chinedu, 1.2.840.1 [id number] Methodi 00:00:00 00:00:00 Orders Colt Ceballos 75746.1.1 268 s t 3.430.2.7 Hospit a .3.482577 l .8 2021-11-20 2021-11-20 Hospital Chinedu, 1.2.840.1 [id number] Methodi 10:54:34 23:59:00 Encounter Colt Ceballos [address]137.1.[address] 3.430.2.7 Hospit a .3.822098 l .8 2021-11-20 2021-11-20 Orders Chinedu, 1.2.840.1 [id number] Methodi 00:00:00 00:00:00 Only Colt Ceballos 84776.1.1 267 s t 3.430.2.7 Hospit a .3.993140 l .8 2021-11-20 2021-11-20 Travel 1.2.840.1 1.2.455.716 0320 [id number] Methodi 00:00:00 00:00:[address] 3.430.2.7 0.2.7.3.698 Ho spita .3.206313 084.8 l .8 2021-11-12 2021-11-12 Travel 1.2.840.1 1.2.173.393 9563 [id number] Methodi 00:00:00 00:00:[address] 3.430.2.7 0.2.7.3.698 Ho spita .3.089264 084.8 l .8 2021-11-12 2021-11-12 Transcribe Chinedu, 1.2.840.1 [id number] Methodi 00:00:00 00:00:00 Orders Colt A. 37007.1.1 532 s t 3.430.2.7 Hospit a .3.341588 l .8 2021-04-04 2021-04-04 Outpatient [facility] [id number] [address] [place] [address] St 07:00:00 07:00:00 -[id number] [facility] 2020-12-19 2020-12-[address] [facility] [id number] Common 00:00:00 00:00:00 [facility] 2020-10-31 2020-10-[address] [facility] [id number] Common 00:00:00 00:00:00 [facility] 2020-05-29 2020-05-29 Case Gramm, [facility] 1.2.840.114 [id number] Univers 00:00:00 00:00:00 Management Ann-Marie James 350.1.13.10 itTwyla 4.2.7.2.686 Farheen Do [phone] [address] 2020-05-29 2020-05-29 Case Gramm[place] 1.2.840.114 [id number] 00:00:00 00:00:00 Management Ann-Marie James 350.1.13.10 [place] 4.2.7.2.[phone] [facility] 204 [facility] 2020-05-17 2020-05-17 Orders Doctor DUSTIN 1.2.840.114 [id number] Univers 00:00:00 00:00:00 Only Unassigned, JEAN CLAUDE 350.1.13.10 ity of [place] [facility] 4.2.7.2.686 Sergio as [id number] [facility] 009 [place] 2020-05-17 2020-05-17 Orders Doctor DUSTIN 1.2.840.114 [id number] 00:00:00 00:00:00 Only Unassigned, JEAN CLAUDE 350.1.13.10 [place] [facility] 4.2.7.2.686 [id number] [facility] 2020-05-14 2020-05-14 [facility] 1.2.840.114 [id number] [facility] 12:40:00 23:59:00 Encounter Ann-Marie James 350.1.13.10 ity of [place] 4[place]7.2.686 [place] [id number] [address] 2020-05-14 2020-05-14 [facility] 1.2.840.114 [id number] 12:40:00 23:59:00 Encounter Ann-Marie James 350.1.13.10 [place] 4.2.7.2.686 [place] [id number] [facility] 2020-05-14 2020-05-[address] [facility] 1.2.840.[id number] [place] [address] 09:21:04 11:38:36 Visit Yael James 350.1.13.10 i ty of [place]2.7.2.686 [place] Profess[place] [phone] Oh dical [facility] 204 [facility] 2020-05-14 2020-05-[address] 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 Tripp, Rosie Lab Main [facility] 1.2.8 40.114 [id number] [facility] 10:55:20 11:10:20 Visit Bharati Ann-Marie James 350.1.13.10 ity of [place] 4[place]2.7.2.686 [place] Profess[place] [phone] Oh dical nal 353 [facility] 2020-05-14 2020-05-14 Outpatient R MITCHELL [facility] [id number] Univers 09:30:00 09:30:00 YAEL ity of [facility] 2020-05-14 2020-05-14 [facility] 1.2.840.114 [id number] [facility] 00:00:00 00:00:00 Surgery Ann-Marie [place] 350.1.13.10 ity of [place]2.7.2.[place] Profess[place] [phone] [facility] 204 [facility] 2020-05-14 2020-05-14 Telephone [facility] 1.2.526.804 [id number] [facility] 00:00:00 00:00:00 Ann-Marie James 350.1.13.10 ity of [place] 4.2.7.2.686 [place] Profess[place] [phone] [facility] [place] 204 [facility] 2020-05-14 2020-05-14 Telephone [facility] 1.2.081.967 [id number] 00:00:00 00:00:00 Ann-Marie James 350.1.13.10 [place] 4.2.7.2.686 Professio [phone] [address] 2020-05-10 2020-05-10 Orders Doctor CHAN 1.2.840.114 [id number] Univers 00:00:00 00:00:00 Only Unassigned, JEAN CLAUDE 350.1.13.10 ity of [place] [facility] 4.2.7.2.686 Sergio as [id number] [address] 2020-05-10 2020-05-10 Orders Doctor DUSTIN 1.2.840.114 [id number] 00:00:00 00:00:00 Only Unassigned, JEAN CLAUDE 350.1.13.10 [place] [facility] 4.2.7.2.686 [id number] [facility] 2020-05-09 2020-05-09 [id number] Common 11:15:00 11:15:00 t Specialty/U Sp [facility] ro[facility]y - [facility] /[facility] Results Test Test Test Results Result [...] 3267) clear Lab Interpretation (test code = 67989-5) Abnormal [facility] URINALYSIS, [id number] 14:35:00 Test Item Value Reference Range Interpretation [...] 3267) Lab Interpretation (test code Abnormal = 66630-9) [facility] [id number] 14:35:00 Test Item Value Reference Range Interpretation [...] 3267) Lab Interpretation (test code Abnormal = 51145-2) [facility] [id number] 14:35:00 Test Item Value Reference Range Interpretation [...] 3267) Lab Interpretation (test code Abnormal = 48568-6) [facility]
[2023-05-02] MEDS ORDERED: NA CHLORIDE 0.9% 1,000 ML ONE (01:02)
[2023-05-02] MEDS ORDERED: KETOROLAC 30 MG/ML INJ ONE (01:02)
[2023-05-02] MEDS ORDERED: ONDANSETRON 4 MG/2 ML VIAL ONE (01:02)
[2023-05-02] MEDS ORDERED: FAMOTIDINE 20 MG/2 ML VIAL IV ONE (01:03)
[2023-05-02 01:11] LABS: Absolute Lymphocytes (CBC) 2.8 K/uL (0.7-4.9); Hematocrit 42.3 % (36.0-45.0); Lymphocytes % 37.9 % (15.3-44.8); MPV 7.1 fL (7.6-11.3); RBC Red Blood Cell Count 4.75 M/uL (3.86-4.86)
[2023-05-02 01:15] LABS: Specific Gravity < 1.005 (1.005-1.030); Urine Bacteria <20 /HPF (<20); Urine Bilirubin NEGATIVE (Negative); Urine Blood Trace (Negative); Urine Clarity Clear (Clear); Urine Color Colorless (Yellow); Urine Glucose NEGATIVE (Negative); Urine Protein NEGATIVE (Negative); Urine RBC <5 /HPF (None Seen); Urine Urobilinogen Normal (Normal)
[2023-05-02 01:29] LABS: Albumin 3.7 g/dL (3.4-5.0); Bilirubin Total 0.2 mg/dL (0.2-1.0); Potassium 3.5 mEq/L (3.5-5.1); Protein, Total 7.4 g/dL (6.4-8.2)
--- NOTE | 2023-05-02 02:47 | ER ---
Nurse's Notes [facility] Name: Chichi Carreon Age: 58 yrs Sex: Female : 1965 Arrival Date: 05/02/2023 Time: 00:14 Bed 16 Private MD: Diagnosis: Calculus of ureter Presentation: 05/02 00:28 Chief complaint: Patient states: I saw Dr Lambert before because i have had kidney kd3 stones in the past, about 3 or 4 times. My pain started about 30 minutes ago on my left side. Coronavirus screen: Vaccine status: Patient reports receiving the 2nd dose of the covid vaccine. Ebola Screen: No symptoms or risks identified at this time. Initial Sepsis Screen: Does the patient meet any 2 criteria? No. Patient's initial sepsis screen is negative. Does the patient have a suspected source of infection? No. Patient's initial sepsis screen is negative. Risk Assessment: Do you want to hurt yourself or someone else? Patient reports no desire to harm self or others. Onset of symptoms was May 02, 2023. 00:28 Method Of Arrival: Wheelchair kd3 00:28 Acuity: BRENT 3 kd3 Triage Assessment: 00:30 General: Appears uncomfortable, Behavior is calm, cooperative. Pain: Complains of pain kd3 in left low back and left lower quadrant. GI: Reports nausea. Historical: - PMHx: 00:30 Hypertension; Kidney stones; kd3 - Immunization history:: Adult Immunizations up to date. - Social history:: Smoking status: Patient denies any tobacco usage or history of. Screenin:55 [facility] ED Fall Risk Assessment (Adult) History of falling in the last 3 months, rv including since admission. [facility] ED Fall Risk Assessment (Adult) History of falling in the last 3 months, including since admission No falls in past 3 months (0 pts) Confusion or Disorientation No (0 pts) Intoxicated or Sedated No (0 pts) Impaired Gait No (0 pts) Mobility Assist Device Used No (0 pt) Altered Elimination No (0 pt) Score/Fall Risk Level 0 - 2 = Low Risk Oriented to surroundings, Maintained a safe environment, Educated pt \T\ family on fall prevention, incl call for assistance when getting out of bed, Assessed \T\ reinforced patient's understanding of fall precautions, Provided non-skid footwear, Hourly rounding (assess needs \T\ fall precautionary measures) done, Used ambulatory aids as needed (educated on \T\ assisted with), Used gait belt as appropriate. Abuse screen: Denies threats or abuse. Denies injuries from another. Nutritional screening: No deficits noted. Tuberculosis screening: No symptoms or risk factors identified. Assessment: 01:54 General: Appears in no apparent distress. Behavior is calm, cooperative, Smells of. rv Pain: Complains of pain in back and left lower quadrant and left low back. Neuro: Level of Consciousness is awake, alert, obeys commands, Oriented to person, place, time, situation. Cardiovascular: Capillary refill < 3 seconds. Respiratory: Airway is patent Respiratory effort is even, unlabored. Derm: Skin is intact. 01:55 GI: Bowel sounds present X 4 quads. Abd is soft and non tender X 4 quads. rv Vital Signs: 00:28 Pulse 81; Resp 19; Temp 98.4(O); Pulse Ox 95% on R/A; Weight 77.11 kg; Height 5 ft. 1 kd3 in. ; 00:31 BP 163 / 89; kd3 02:55 BP 145 / 86; Pulse 85; Resp 15; Temp 98; Pulse Ox 99% ; rv 00:28 Body Mass Index 32.12 (77.11 kg, 154.94 cm) kd3 ED Course: 00:15 Patient arrived in ED. jj6 00:30 Triage completed. kd3 00:30 Arm band placed on right wrist. kd3 00:32 Janet Haskins PA-C is [facility]. sb4 00:32 Oly Munoz MD is Attending Physician. sb4 00:36 Radiology exam delayed due to lab results not completed at this time. (BUN/Creatinine) eh4 IV insertion attempt and/or patient not having appropriate IV at this time. 01:02 CBC with Diff Sent. kd3 01:02 CMP Sent. kd3 01:02 Lipase Sent. kd3 01:02 Urinalysis w/ reflexes Sent. kd3 01:02 Inserted saline lock: 20 gauge in right antecubital area, using aseptic technique. kd3 Blood collected. 01:54 Kurt Lucero, ADINA is Primary Nurse. rv 01:55 Patient has correct armband on for positive identification. Provided Education on: rv kidney stones. 01:55 No provider procedures requiring assistance completed. rv 02:07 CT Abd/Pelvis - IV Contrast Only In Process Unspecified. EDMS 02:45 Akil Lambert MD is Referral Physician. sb4 02:56 IV discontinued, intact, bleeding controlled, No redness/swelling at site. Pressure rv dressing applied. Administered Medications: 01:01 Drug: Famotidine IVP 20 mg Route: IVP; Site: right antecubital; kd3 02:55 Follow up: Response: No adverse reaction rv 01:02 Drug: NS 0.9% IV 1000 ml Route: IV; Rate: 1 bolus; Site: right antecubital; kd3 02:55 Follow up: IV Status: Completed infusion; IV Intake: 1000ml rv 01:02 Drug: TORadol - Ketorolac IVP 15 mg Route: IVP; Site: right antecubital; kd3 02:56 Follow up: Response: No adverse reaction rv 01:02 Drug: Ondansetron IVP 4 mg Route: IVP; Site: right antecubital; kd3 02:55 Follow up: Response: No adverse reaction rv Medication: 01:55 VIS not applicable for this client. rv Intake: 02:55 IV: 1000ml; Total: 1000ml. rv Outcome: 02:46 Discharge ordered by . sb4 02:55 Discharged to home ambulatory. rv 02:55 Condition: good 02:55 Discharge instructions given to patient, family, Instructed on discharge instructions, follow up and referral plans. medication usage, Demonstrated understanding of instructions, follow-up care, medications, Prescriptions given X 2. 02:56 Patient left the ED. rv Signatures: Dispatcher [employer] EDNJ Kurt Lucero, RN RN rv Delfina Calvin jj6 Diamond Knowles RN RN kd3 Param [facility] [facility] hospital[facility] 4 Janet Haskins PA-C PAАндрей sb4
--- NOTE | 2023-05-02 02:47 | EDPHYS ---
Physician Documentation [facility] Name: Chichi Carreon Age: 58 yrs Sex: Female : 1965 Arrival Date: 05/02/2023 Time: 00:14 Bed 16 Private MD: ED Physician Oly Munoz HPI: 05/02 02:15 This 58 yrs old Female presents to ER via Wheelchair with complaints of sb4 Possible Kidney Stone. 02:16 58-year-old female with past medical history of hypertension nephrolithiasis presents sb4 with complaints of left-sided flank pain. She states it began just prior to arrival, and feels like her prior kidney stone episodes. She has required lithotripsy in the past. She denies nausea, vomiting, diarrhea, dysuria, fever. Historical: - PMHx: 00:30 Hypertension; Kidney stones; kd3 - Immunization history:: Adult Immunizations up to date. - Social history:: Smoking status: Patient denies any tobacco usage or history of. ROS: 02:16 Constitutional: Negative for fever, chills, and weight loss, Eyes: Negative for injury, sb4 pain, redness, and discharge, Respiratory: Negative for shortness of breath, cough, wheezing, and pleuritic chest pain, Abdomen/GI: Negative for abdominal pain, nausea, vomiting, diarrhea, and constipation, MS/Extremity: Negative for injury and deformity, Skin: Negative for injury, rash, and discoloration. 02:16 : Positive for flank pain, hematuria, Negative for pelvic pain, burning with urination, difficulty urinating. 02:16 All other systems are negative. Exam: 02:16 Constitutional: This is a well developed, well nourished patient who is awake, alert, sb4 and in no acute distress. Head/Face: Normocephalic, atraumatic. Eyes: Extra-ocular motions intact. Periorbital areas with no swelling, redness, or edema. Cardiovascular: Regular rate and rhythm with a normal S1 and S2. Respiratory: Lungs have equal breath sounds bilaterally, clear to auscultation and percussion. No rales, rhonchi or wheezes noted. No increased work of breathing, no retractions or nasal flaring. Abdomen/GI: Soft, non-tender, no distension. Skin: Warm, dry with normal turgor. Normal color with no rashes, no lesions, and no evidence of cellulitis. MS/ Extremity: Pulses equal, no cyanosis. Neurovascular intact. Full, normal range of motion. Vital Signs: 00:28 Pulse 81; Resp 19; Temp 98.4(O); Pulse Ox 95% on R/A; Weight 77.11 kg; Height 5 ft. 1 kd3 in. ; 00:31 BP 163 / 89; kd3 02:55 BP 145 / 86; Pulse 85; Resp 15; Temp 98; Pulse Ox 99% ; rv 00:28 Body Mass Index 32.12 (77.11 kg, 154.94 cm) kd3 MDM: 00:32 Patient medically screened. sb4 02:16 Differential Diagnosis nephrolithiasis, UTI, pyelonephritis, back strain. sb4 02:44 Data reviewed: vital signs, nurses notes, lab test result(s), radiologic studies, I sb4 have discussed the patient's presentation/case with the attending Emergency Department Physician; and as a result, I will discharge patient. Historians other than the Patient: Spouse/Significant Other: . Counseling: I had a detailed discussion with the patient and/or guardian regarding: the historical points, exam findings, and any diagnostic results supporting the discharge/admit diagnosis, lab results, radiology results, the need for outpatient follow up, a urologist, to return to the emergency department if symptoms worsen or persist or if there are any questions or concerns that arise at home. 05/02 00:33 Order name: CBC with Diff; Complete Time: 01:16 sb4 05/02 00:33 Order name: CMP; Complete Time: :34 sb4 05/02 00:33 Order name: Lipase; Complete Time: :34 sb4 05/02 00:33 Order name: Urinalysis w/ reflexes; Complete Time: :16 sb4 05/02 00:33 Order name: CT Abd/Pelvis - IV Contrast Only sb4 05/02 00:33 Order name: IV Saline Lock; Complete Time: 01: sb4 05/02 00:33 Order name: Labs collected and sent; Complete Time: 01:02 sb4 Administered Medications: 01:01 Drug: Famotidine IVP 20 mg Route: IVP; Site: right antecubital; kd3 02:55 Follow up: Response: No adverse reaction rv 01:02 Drug: NS 0.9% IV 1000 ml Route: IV; Rate: 1 bolus; Site: right antecubital; kd3 02:55 Follow up: IV Status: Completed infusion; IV Intake: 1000ml rv 01:02 Drug: TORadol - Ketorolac IVP 15 mg Route: IVP; Site: right antecubital; kd3 02:56 Follow up: Response: No adverse reaction rv 01:02 Drug: Ondansetron IVP 4 mg Route: IVP; Site: right antecubital; kd3 02:55 Follow up: Response: No adverse reaction rv Disposition: 07:09 STAFF ATTESTATION STATEMENT: I was immediately available onsite in the emergency sd2 department for consultation in the care of this patient. I did not see or examine this patient. Oly Munoz MD. Disposition Summary: 05/02/23 02:46 Discharge Ordered Location: Home sb4 Problem: new sb4 Symptoms: have improved sb4 Condition: Stable sb4 Diagnosis - Calculus of ureter sb4 Followup: sb4 - With: Akil Lambert MD - When: 2 - 3 days - Reason: Recheck today's complaints, Continuance of care, Re-evaluation by your physician Discharge Instructions: - Discharge Summary Sheet sb4 - Kidney Stones, [id number] sb4 - Dietary Guidelines to Help Prevent Kidney Stones sb4 Forms: - Medication Reconciliation Form sb4 - Thank You Letter sb4 - Antibiotic Education sb4 - Prescription Opioid Use sb4 - Patient Portal Instructions sb4 Prescriptions: - Flomax 0.4 mg Oral capsule - take 1 capsule by ORAL route daily; 10 capsule; Refills: 0, Product Selection sb4 Permitted - ketorolac 10 mg Oral tablet - take 1 tablet by ORAL route every 4 to 6 hours for 2 days as needed for pain; sb4 do not exceed 4 doses per 24 hrs; 12 tablet; Refills: 0, Product Selection Permitted Signatures: Dispatcher [employer] Diamond Chow, RN RN kd3 Oly Munoz MD MD sd2 Janet Haskins PA-C PA-C sb4 Kurt Lucero RN rv
[2023-05-02 05:08] VITALS: BP 145/86; TEMP 98; O2SAT 99
--- NOTE | 2023-05-02 23:13 | RAD REPORT ---
EXAM DESCRIPTION: CT Abdomen and Pelvis With Intravenous Contrast CLINICAL HISTORY: The patient is 58 years old and is Female; LEFT FLANK PAIN, NAUSEA [facility] MAIN TECHNIQUE: Axial computed tomography images of the abdomen and pelvis with intravenous contrast. S agittal and coronal reformatted images were created and reviewed. This CT exam was performed using one or more of the following dose reduction techniques: automated exposure control, adjustment of t he mA and/or kV according to patient size, and/or use of iterative reconstruction technique. COMPARISON: 10/25/2020 CT abdomen pelvis without contrast FINDINGS: LUNG BASES: Unremarkable. No mass. No consolidation. ABDOMEN: LIVER: Unremarkable. No mass. GALLBLADDER AND BILE DUCTS: Unremarkable. No calcified stones. No ductal dilation. PANCREAS: Unremarkable. No mass. No ductal dilation. SPLEEN: Unremarkable. No splenomegaly. ADRENALS: Unremarkable. No mass. KIDNEYS AND URETERS: 0.4 cm obstructive stone noted at the left UVJ with mild left-sided ureteral e ctasia. Additional tiny bilateral nonobstructive intrarenal stones. STOMACH AND BOWEL: Unremarkable. No obstruction. No mucosal thickening. PELVIS: APPENDIX: No findings to suggest acute appendicitis. BLADDER: Unremarkable. No mass. REPRODUCTIVE: Unremarkable as visualized. ABDOMEN and PELVIS: INTRAPERITONEAL SPACE: Unremarkable. No free air. No significant fluid collection. BONES/JOINTS: No acute fracture. No dislocation. SOFT TISSUES: Small fat-containing umbilical hernia. VASCULATURE: Unremarkable. No abdominal aortic aneurysm. LYMPH NODES: Unremarkable. No enlarged lymph nodes. IMPRESSION: 1. 0.4 cm obstructive stone noted at the left UVJ with mild left-sided ureteral ectasi a. 2. Additional bilateral nonobstructive intrarenal stones. Electronically signed by: Ray Rizo MD 05/02/2023 2:38 AM CDT Due to temporary technical issues with the PACS/Fluency reporting system, reports are being signed by the in house radiologists without review as a courtesy to insure prompt reporting. The interpreting radiologist is fully responsible for the content of the report.
== END 2023-05-02 02:56 | disposition home or self-care (01) ==
LOC: ER 00:14
DX: N20.1 Calculus of ureter (principal); Z87.442 Personal history of urinary calculi; I10 Essential (primary) hypertension
CPT/HCPCS: 96361; 85025; 81001; 36415; 83690; 80053; 74177; 96375; 96374; 99284; Q9967; J2405; J7030